=== PATIENT | male | born 1960 | race Hispanic/Latino ===

== ENCOUNTER 2017-08-21 18:16 | Emergency (ER) | payer SELFPAY ==
[2017-08-21] MEDS ORDERED: cloNIDine 0.1 MG TAB ONE (18:58)
[2017-08-21] MEDS ORDERED: Lisinopril 10 MG TAB ONE (18:59)
[2017-08-21] MEDS ORDERED: Ibuprofen 800 MG TAB ONE (19:01)
--- NOTE | 2017-08-21 19:51 | RAD ---
LEFT KNEE FOUR VIEWS: HISTORY: Left knee pain. FINDINGS: No fracture, dislocation, or bony destruction is seen. POS: [facility]
== END 2017-08-21 19:57 | disposition left against medical advice (07) ==
LOC: ERS 18:16
DX: S89.92XA Unspecified injury of left lower leg, initial encounter (principal); E11.9 Type 2 diabetes mellitus without complications; I10 Essential (primary) hypertension; F41.9 Anxiety disorder, unspecified; F17.210 Nicotine dependence, cigarettes, uncomplicated; Z86.73 Personal history of transient ischemic attack (TIA), and cerebral infarction without residual deficits; W22.8XXA Striking against or struck by other objects, initial encounter; Y92.59 Other trade areas as the place of occurrence of the external cause

== ENCOUNTER 2017-12-25 08:35 | Emergency (ER) | payer BC, SELFPAY ==
--- NOTE | 2017-12-25 10:53 | RAD ---
LEFT FOREARM TWO VIEWS: History: Fall, injury to the left upper extremity and pain. FINDINGS: No evidence of fracture. IMPRESSION: No acute osseous abnormality identified. POS: [facility]
--- NOTE | 2017-12-25 10:53 | RAD ---
LEFT HUMERUS TWO VIEWS: History: Fall with injury to the left upper extremity with pain. FINDINGS: Humeral head appears to ride high on the glenoid which could indicate a chronic rotator cuff injury. There is no fracture or dislocation seen. IMPRESSION: No acute fracture or dislocation. POS: [facility]
--- NOTE | 2017-12-25 10:55 | RAD ---
LEFT SHOULDER 3 VIEWS: HISTORY: Fall with injury to left shoulder with pain. The subacromial distance is narrowed suggesting chronic rotator cuff injury. Mild degenerative das e noted with mild spurring from the humeral head. No evidence of acute fracture or dislocation. AC joint is normally aligned. IMPRESSION: No acute fracture or dislocation. Mild degenerative change and question chronic rotator cuff injury. POS: [facility]
== END 2017-12-25 11:16 | disposition home or self-care (01) ==
LOC: ERS 08:35
DX: S40.022A Contusion of left upper arm, initial encounter (principal); I10 Essential (primary) hypertension; E11.9 Type 2 diabetes mellitus without complications; F41.9 Anxiety disorder, unspecified; F17.210 Nicotine dependence, cigarettes, uncomplicated; Z86.73 Personal history of transient ischemic attack (TIA), and cerebral infarction without residual deficits; W01.0XXA Fall on same level from slipping, tripping and stumbling without subsequent striking against object, initial encounter

== ENCOUNTER 2018-10-16 07:35 | Emergency (ER) | payer MEDICARE, SELFPAY ==
[2018-10-16 08:17] LABS: #Eosinphils 0.3 thou/uL (0.0-0.7); #Lymphocytes 1.8 thou/uL (1.20-3.40); #Monocytes 0.9 thou/uL (0.11-0.59); #Neutrophils 10.3 thou/uL (1.40-6.50); %Basophils 0.1 % (0.0-1.0); %Eosinophils 2.5 % (0.0-10.0); %Lymphocytes 13.8 % (21.0-51.0); %Monocytes 6.5 % (0.0-10.0); %Neutrophils 77.2 % (42.0-75.0); Hemoglobin 14.9 g/dL (14.0-18.0); Mean Corpuscular Hemoglobin 28.3 pg (27.0-31.0); Mean Platelet Volume 8.7 fL (7.4-10.4); Platelet Count 245 thou/uL (130-400); RBC Distribution Width 12.7 % (11.5-14.5); Red Blood Cell (RBC) Count 5.26 mill/uL (4.70-6.10); White Blood Cell (WBC) Count 13.4 thou/uL (4.8-10.8)
[2018-10-16 08:44] LABS: ALT (SGPT) 9 U/L (8-55); AST (SGOT) 9 U/L (5-34); Albumin 3.9 g/dL (3.5-5.0); Alkaline Phosphatase 99 U/L (40-150); Anion Gap 12 mmol/L (10-20); BUN (Urea Nitrogen) 14 mg/dL (8.4-25.7); Bilirubin, Total 0.8 mg/dL (0.2-1.2); Calc. Creatinine Clearance 0 mL/min (70-130); Calcium 9.2 mg/dL (7.8-10.44); Carbon Dioxide 26 mmol/L (22-29); Chloride 102 mmol/L (98-107); Estimated GFR-MDRD 79; Globulin 3.4 g/dL (2.4-3.5); Glucose 229 mg/dL (70-105); Potassium 3.2 mmol/L (3.5-5.1); Protein, Total 7.3 g/dL (6.0-8.3); Sodium 137 mmol/L (136-145)
[2018-10-16] MEDS ORDERED: Piperacillin/Tazobactam 4.5 GM VIAL ONE (08:50)
[2018-10-16] MEDS ORDERED: Morphine 4 MG/ML VIAL ONE ×2 (09:01→10:19)
--- NOTE | 2018-10-16 09:26 | RAD ---
RIGHT HAND THREE VIEWS: History: 58-year-old male with history of right hand infection and swelling following a puncture wound. FINDINGS: Soft tissue swelling of the middle finger, particularly distally. Degenerative changes including the third finger distal interphalangeal joint. No acute fracture or dislocation. IMPRESSION: Soft tissue swelling. Degenerative changes. No acute fracture or metal foreign body. POS: [facility]
== END 2018-10-16 11:17 | disposition short-term general hospital (02) ==
LOC: ERS 07:35
DX: M65.841 Other synovitis and tenosynovitis, right hand (principal); E11.9 Type 2 diabetes mellitus without complications; I10 Essential (primary) hypertension; Z86.73 Personal history of transient ischemic attack (TIA), and cerebral infarction without residual deficits; F41.9 Anxiety disorder, unspecified; F17.210 Nicotine dependence, cigarettes, uncomplicated
CPT/HCPCS: 36415; 80053; 83605; 85025; 85652; 86140; 87040; 96365; 96375; 96376; J2270; J2543

== ENCOUNTER 2018-11-18 19:11 | Emergency (ER) | payer MEDICARE ==
--- NOTE | 2018-11-19 07:45 | RAD ---
RADIOGRAPH RIGHT THIRD DIGIT 3 VIEWS: Date: 11/18/18 Time: 2239 hours HISTORY: 58-year-old male with pain and swelling of digits. Previous trauma in October 2018 followed by tim galloway. COMPARISON: 10/16/18. FINDINGS: The third DIP is flexed, while the third PIP and MCP are not flexed. The previously demonstrated soft tissue swelling of the third digit has become worse. Tiny calcific densities in the soft tissues abu tting the dorsum of the base of the distal phalanx and dorsum of head of middle phalanx demonstrated on lateral view. The one at the base of the distal phalanx appears to be new since the prior study. N o subcutaneous emphysema. The distal phalanx is difficult to evaluate because of the flexion, on the oblique and AP views. No destructive osseous lesion is identified on the lateral view. IMPRESSION: 1. Evidence for extensor coles injury of the third distal interphalangeal joint. 2. Worsening of diffuse soft tissue swelling of the third digit, suggestive of cellulitis. POS: [facility]
== END 2018-11-19 00:40 | disposition home or self-care (01) ==
LOC: ERS 19:11
DX: T81.89XA Other complications of procedures, not elsewhere classified, initial encounter (principal); E11.9 Type 2 diabetes mellitus without complications; I10 Essential (primary) hypertension; Z86.73 Personal history of transient ischemic attack (TIA), and cerebral infarction without residual deficits; F41.9 Anxiety disorder, unspecified; F17.210 Nicotine dependence, cigarettes, uncomplicated

== ENCOUNTER 2019-12-01 10:36 | Emergency (ER) | payer MEDICARE ==
[2019-12-01 11:35] LABS: #Basophils 0.1 thou/uL (0.0-0.2); #Eosinphils 0.3 thou/uL (0.0-0.7); #Lymphocytes 2.1 thou/uL (1.20-3.40); #Monocytes 0.6 thou/uL (0.11-0.59); #Neutrophils 3.3 thou/uL (1.40-6.50); %Basophils 1.3 % (0.0-1.0); %Eosinophils 5.4 % (0.0-10.0); %Lymphocytes 32.7 % (21.0-51.0); %Monocytes 8.9 % (0.0-10.0); %Neutrophils 51.7 % (42.0-75.0); Hemoglobin 15.5 g/dL (14.0-18.0); Mean Corpuscular HGB CONC 33.8 g/dL (32.0-36.0); Mean Corpuscular Hemoglobin 29.5 pg (27.0-31.0); Mean Corpuscular Volume 87.2 fL (78.0-98.0); Mean Platelet Volume 8.8 fL (7.4-10.4); Platelet Count 207 thou/uL (130-400); Red Blood Cell (RBC) Count 5.28 mill/uL (4.70-6.10); White Blood Cell (WBC) Count 6.3 thou/uL (4.8-10.8)
[2019-12-01] MEDS ORDERED: Amlodipine 5 MG TAB ONE (11:49)
[2019-12-01 11:57] LABS: Bilirubin Negative (Negative); Blood, Urine Negative (Negative); Clarity Clear (Clear); Glucose, Urine (Dipstick) 300 mg/dL (Negative); Leukocyte Negative Leu/uL (Negative); Nitrite Negative (Negative); Protein, Urine (Dipstick) Negative (Neg-Trace); Urobilinogen Normal mg/dL (Less than 2)
[2019-12-01 12:04] LABS: ALT (SGPT) 20 U/L (8-55); AST (SGOT) 13 U/L (5-34); Albumin 4.2 g/dL (3.4-4.8); Alkaline Phosphatase 107 U/L (40-110); Anion Gap 12 mmol/L (10-20); BUN (Urea Nitrogen) 16 mg/dL (8.4-25.7); Bilirubin, Total 0.4 mg/dL (0.2-1.2); Calc. Creatinine Clearance 0 mL/min (70-130); Calcium 9.1 mg/dL (7.8-10.44); Carbon Dioxide 27 mmol/L (23-31); Chloride 102 mmol/L (98-107); Estimated GFR-MDRD 73; Globulin 2.7 g/dL (2.4-3.5); Glucose 178 mg/dL (80-115); Lipase 28 U/L (8-78); Potassium 3.9 mmol/L (3.5-5.1); Protein, Total 6.9 g/dL (5.8-8.1); Sodium 137 mmol/L (136-145)
--- NOTE | 2019-12-01 12:53 | CT ---
CT OF THE ABDOMEN AND PELVIS WITH IV CONTRAST INDICATION: Right-sided abdominal pain COMPARISON: None FINDINGS: ABDOMEN: Lung bases: There is bibasilar atelectasis Liver: No focal lesion. Gallbladder: Normal appearing. Pancreas: Normal. Adrenal glands: Normal. Spleen: Normal. Kidneys and ureters: There is a 4.2 x 4.7 cm peripherally enhancing exophytic mass extending off the superior pole of the right kidney on image 32 of series 2 most consistent with renal cell carcinoma. There is a 4.0 x 4.6 x 5 cm cyst with internal nodular septation consistent with a Bosniak 3 lesion of the superior pole left kidney. Vasculature: There are mild vascular calcifications seen involving the visualized vasculature. Both r enal veins are patent. Lymph nodes:No lymphadenopathy. Free fluid in abdomen:No free fluid is evident. PELVIS: Small and large bowel: There is a moderate amount retained stool within the colon. There is an normal appearance to the small bowel. Appendix:Normal Bladder: Normal. Rectal and perirectal soft tissues:Normal. Reproductive structures: Normal. Free fluid in pelvis: No free fluid is evident. Lymphadenopathy pelvis: No lymphadenopathy is evident. Osseous structures: No acute osseous abnormality. No destructive osteolytic or osteoblastic lesion i s identified. There is scattered degenerative and osteoarthritic changes. Soft tissues:Normal. IMPRESSION: 1. 4.7 cm peripherally enhancing exophytic solid mass of the superior pole of the right kidney is con sistent with a renal cell carcinoma. 2. 5 cm cyst involving the superior pole left kidney with internal nodular septal enhancement is cons istent with a Bosniak 3 lesion of the left kidney. 3. Moderate amount retained stool within the colon. 4. Urology consultation is recommended.
[2019-12-01] MEDS ORDERED: Iopamidol-370 76% 500 ML 1 ML ONE (13:39)
== END 2019-12-01 15:44 | disposition home or self-care (01) ==
LOC: ERS 10:36
DX: N28.1 Cyst of kidney, acquired (principal); N28.89 Other specified disorders of kidney and ureter; I10 Essential (primary) hypertension; E11.9 Type 2 diabetes mellitus without complications; F41.9 Anxiety disorder, unspecified; F17.210 Nicotine dependence, cigarettes, uncomplicated; Z86.73 Personal history of transient ischemic attack (TIA), and cerebral infarction without residual deficits
CPT/HCPCS: 36415; 74177; 80053; 81003; 83690; 83880; 84484; 85025; 93005; Q9967

== ENCOUNTER 2019-12-09 11:56 | Observation (INO) | payer BC, MEDICARE ==
[2019-12-09 13:14] LABS: #Basophils 0.1 thou/uL (0.0-0.2); #Eosinphils 0.4 thou/uL (0.0-0.7); #Lymphocytes 2.7 thou/uL (1.20-3.40); #Monocytes 0.7 thou/uL (0.11-0.59); #Neutrophils 3.5 thou/uL (1.40-6.50); %Basophils 1.8 % (0.0-1.0); %Lymphocytes 35.9 % (21.0-51.0); %Monocytes 9.9 % (0.0-10.0); %Neutrophils 46.5 % (42.0-75.0); Hemoglobin 14.4 g/dL (14.0-18.0); Mean Corpuscular HGB CONC 32.4 g/dL (32.0-36.0); Mean Corpuscular Hemoglobin 28.8 pg (27.0-31.0); Mean Corpuscular Volume 88.9 fL (78.0-98.0); Mean Platelet Volume 9.1 fL (7.4-10.4); Platelet Count 185 thou/uL (130-400); RBC Distribution Width 13.2 % (11.5-14.5); Red Blood Cell (RBC) Count 4.99 mill/uL (4.70-6.10); White Blood Cell (WBC) Count 7.4 thou/uL (4.8-10.8)
--- NOTE | 2019-12-09 13:30 | RAD ---
XR Chest 1 View Portable HISTORY: Chest pain, dizziness COMPARISON: 11/23/2016 FINDINGS: The heart size is normal. The lungs are well expanded without focal areas of consolidation, pneumothorax or pleural effusions. IMPRESSION: No radiographic evidence of acute cardiopulmonary process.
[2019-12-09 13:41] LABS: ALT (SGPT) 17 U/L (8-55); AST (SGOT) 13 U/L (5-34); Albumin 3.9 g/dL (3.4-4.8); Alkaline Phosphatase 104 U/L (40-110); Anion Gap 10 mmol/L (10-20); BUN (Urea Nitrogen) 24 mg/dL (8.4-25.7); Bilirubin, Total 0.2 mg/dL (0.2-1.2); Calc. Creatinine Clearance 0 mL/min (70-130); Calcium 8.7 mg/dL (7.8-10.44); Carbon Dioxide 31 mmol/L (23-31); Chloride 104 mmol/L (98-107); Estimated GFR-MDRD 71; Globulin 2.6 g/dL (2.4-3.5); Glucose 146 mg/dL (80-115); Potassium 3.7 mmol/L (3.5-5.1); Protein, Total 6.5 g/dL (5.8-8.1); Sodium 141 mmol/L (136-145)
[2019-12-09 14:24] LABS: Bilirubin Negative (Negative); Blood, Urine Negative (Negative); Clarity Clear (Clear); Glucose, Urine (Dipstick) 200 mg/dL (Negative); Leukocyte Negative Leu/uL (Negative); Nitrite Negative (Negative); Protein, Urine (Dipstick) Negative (Neg-Trace); Urobilinogen Normal mg/dL (Less than 2)
[2019-12-09 15:40] LABS: Amphetamine Not Detected (NotDetected); Barbiturates Screen Not Detected (NotDetected); Benzodiazepine Screen Not Detected (NotDetected); Cocaine Metabolite Screen Detected (NotDetected); Medtox Control Line Valid? VALID (VALID); Medtox Reader # READER 1; Methadone Not Detected (NotDetected); Methamphetamine Not Detected (NotDetected); Opiate Screen Not Detected (NotDetected); Oxycodone Screen Not Detected (NotDetected); Phencyclidine (PCP) Not Detected (NotDetected); THC/Cannabinoid Screen Not Detected (NotDetected); Tricyclic Screen Not Detected (NotDetected)
[2019-12-09 15:42] LABS: Troponin I 0.035 ng/mL (< 0.028)
[2019-12-09] MEDS ORDERED: Aspirin Chewable 81 MG TAB ONE (16:15)
[2019-12-09 19:40] LABS: Troponin I 0.029 ng/mL (< 0.028)
[2019-12-09] MEDS ORDERED: Sodium Chloride 0.9% 1,000 ML IV SCH (19:45)
[2019-12-09 19:58] VITALS: BMI 29.2
--- NOTE | 2019-12-09 20:27 | CT ---
CT Brain WO Con History: Head injury with loss of consciousness. Comparison: CT brain May 2017 Findings: Old right pontine infarct. Mild microvascular ischemic changes in the subcortical and deep white matter. No acute hemorrhage. No midline shift or mass effect. Mild mucosal thickening of the posterior ethmoi ds. Mastoids are clear. The calvarium is intact. Right posterior davis radiata white matter infarct is new from 2017 although not acute. Impression: No acute posttraumatic intracranial sequelae.
[2019-12-09] MEDS ORDERED: Acetaminophen 650 MG Suppository PR PRN (20:31)
--- NOTE | 2019-12-09 20:37 | RAD ---
XR Chest Pa Lat STANDARD History: Shortness of breath Comparison: Radiograph same day Findings: Heart size mildly enlarged. No pneumothorax. No effusion. No acute osseous abnormality. Impression: No acute intrathoracic abnormality.
[2019-12-09] MEDS: Atorvastatin Calcium 40 MG TAB PO SCH (20:52)
[2019-12-09] MEDS: Acetaminophen 325 MG TAB PO PRN (20:53)
[2019-12-09] MEDS: Famotidine 20 MG TAB PO SCH (20:53)
[2019-12-09] MEDS ORDERED: Dextrose 5% in Water 1,000 ML IV PRN (21:02)
[2019-12-09] MEDS ORDERED: Dextrose 50% Abboject 50 ML SYRINGE SLOW IVP PRN (21:02)
[2019-12-09] MEDS ORDERED: HumaLOG 300 UNITS/3 ML VIAL SC PRN (21:02)
--- NOTE | 2019-12-09 21:50 | HP ---
TIME OF ASSESSMENT: 1900 hours. CHIEF COMPLAINT: "I feel weird and fat." HISTORY OF PRESENT ILLNESS: Mr. Cody is a 59-year-old gentleman, who states he has felt "weird" and like "something is not right" since he woke up early this morning. The patient states he feels "fat," but unable to gauge if he has gained weight. He reported to the nurse that he had actually lost weight recently. He reports having an unusual sensation in his hands, which he describes as numb and heavy. Reports having weakness on both sides of his body, making it difficult to get out of bed, but denies having any difficulty holding objects or dropping things or dragging his leg when he walks. The patient unable to really answer specific questions regarding his symptoms and is vague. He states he himself is confused with how he is feeling. Reports noting some numbness on the left side of his face, which he states has been there for a "long time." The patient is unable to state exactly how long if few days, weeks, or months. He denies having any chest pain or palpitations. He does report an episode of shortness of breath yesterday evening when he walked outside in the cold. The patient states he normally does not become short of breath with walking and is able to walk for several miles. He reports some discomfort on the right side of his abdomen, which has been there for the last couple of weeks. He presented to the emergency department recently on December 01 with complaints of right-sided abdominal pain. The patient was noted to have a significantly elevated blood pressure of 238/115 at initial presentation. He was given amlodipine. An EKG done at that time had demonstrated T-wave inversion in leads 1, 2, V4 to V6, similar to previous EKG in 2017. The patient had CT imaging of the abdomen and pelvis, which showed a right renal mass, peripherally enhancing exophytic solid mass of the superior pole of the right kidney consistent with renal cell carcinoma and measuring 4.7 cm. There is a moderate amount of retained stool within the colon. The patient's case had been discussed with Dr. Dumont, who recommended outpatient followup. The patient was discharged with a prescription for amlodipine. He states he was never on antihypertensives in the past. The discomfort on the right side of his abdomen has remained constant since. EMERGENCY DEPARTMENT COURSE: In the Emergency Department today, the patient has undergone an EKG showing sinus bradycardia with a heart rate of 56 and left ventricular hypertrophy type changes. Chest x-ray was done showing mildly enlarged heart size. He was given 324 mg of aspirin and referred for ACS rule out and "dizziness workup." The patient denies experiencing any spinning sensation or ataxia. Again, denies experiencing any chest pain. LABORATORY STUDIES: He had laboratory studies done, which showed a normal full blood count. Sodium was 141, potassium 3.7, BUN 24, creatinine 1.06, GFR 71, glucose 146, calcium 8.7, total bilirubin 0.2, AST 13, ALT 17, alkaline phosphatase 104. Troponin 0.027, 0.035, and 0.029. Albumin 3.9. Urinalysis done showed 200 of glucose, otherwise negative. Urine drug screen was positive for cocaine. PAST MEDICAL HISTORY: 1. Hypertension. 2. History of acute pontine infarction with left-sided weakness. 3. Type 2 diabetes mellitus. 4. Dyslipidemia. 5. Cocaine abuse. PAST SURGICAL HISTORY: 1. Right wrist surgery with contractions in the right hand. 2. Chronic right ear surgery because of trauma. 3. History of skin graft. ALLERGIES: NO KNOWN DRUG ALLERGIES. MEDICATION: Amlodipine. PHYSICAL EXAMINATION: GENERAL: The patient appears well developed and in no acute distress. VITAL SIGNS: Temperature 98.3, pulse 72, respirations 20, O2 saturation 96% on room air, blood pressure 148/82 supine, 154/74 sitting and 169/80 standing. HEENT: Normocephalic and atraumatic. Pupils are equal, round, and reactive to light. Sclerae are without icterus. Oropharynx clear. NECK: Supple. LUNGS: Clear to auscultation bilaterally. CARDIAC: Regular rate and rhythm. ABDOMEN: Soft, nontender, nondistended. Normoactive bowel sounds present. EXTREMITIES: No lower leg swelling or edema. Peripheral pulses present. NEUROLOGIC: Alert and oriented x3. Facial movements normal. No tongue deviation. Slight altered sensation on the left side of his cheek, which he states is chronic for unknown period of time. Power 5/5 in all limbs. Sensation intact, however, the patient is stating that his arms feel heavy and fingertips feel numb. The patient is a poor historian and inconsistent on exam. INVESTIGATIONS: As mentioned above in HPI. IMPRESSION AND PLAN: Mr. Cody is a 59-year-old gentleman with multiple complaints, who is being admitted for management of the following. 1. Syncope/collapse. The patient with vague/inconsistent symptoms concerning for possible cerebrovascular accident/transient ischemic attack. He has a history of stroke in the past. We will obtain CT of head given head injury with loss of consciousness yesterday any symptoms that develops since then. We will order echo and consult neuro. 2. Acute coronary syndrome rule out. The patient denies having any chest pain. He did have an indeterminate troponin. We will continue to trend troponins. Continue cardiac monitoring. Chest x-ray notable for mild cardiomegaly. We will add on a BNP. 3. Hypertension. Monitor blood pressure. Continue with orthostatic BPs q.a.m. 4. Diabetes mellitus. Resume home medications once verified. Initiate sliding scale. 5. Dyslipidemia. Resume statin. 6. Gastrointestinal prophylaxis with famotidine. 7. Deep venous thrombosis prophylaxis. Walking program consulted. Mechanical SCDs. 8. Code status full. Surrogate decision maker is his , Michelle Norman. The patient's case discussed with attending, who agrees with the plan of care as described above. Job ID: [id number]
[2019-12-09 23:00] LABS: Troponin I 0.033 ng/mL (< 0.028)
[2019-12-10 05:20] LABS: #Basophils 0.1 thou/uL (0.0-0.2); #Eosinphils 0.5 thou/uL (0.0-0.7); #Lymphocytes 3.4 thou/uL (1.20-3.40); #Monocytes 0.7 thou/uL (0.11-0.59); #Neutrophils 3.1 thou/uL (1.40-6.50); %Basophils 0.9 % (0.0-1.0); %Eosinophils 6.4 % (0.0-10.0); %Lymphocytes 44.1 % (21.0-51.0); %Monocytes 8.7 % (0.0-10.0); %Neutrophils 39.9 % (42.0-75.0); Hemoglobin 13.5 g/dL (14.0-18.0); Mean Corpuscular HGB CONC 30.5 g/dL (32.0-36.0); Mean Corpuscular Hemoglobin 27.1 pg (27.0-31.0); Mean Corpuscular Volume 88.6 fL (78.0-98.0); Mean Platelet Volume 9.4 fL (7.4-10.4); Platelet Count 192 thou/uL (130-400); RBC Distribution Width 13.1 % (11.5-14.5); Red Blood Cell (RBC) Count 4.98 mill/uL (4.70-6.10); White Blood Cell (WBC) Count 7.7 thou/uL (4.8-10.8)
[2019-12-10 05:44] LABS: Anion Gap 9 mmol/L (10-20); BUN (Urea Nitrogen) 14 mg/dL (8.4-25.7); Calc. Creatinine Clearance 91 mL/min (70-130); Calcium 8.8 mg/dL (7.8-10.44); Carbon Dioxide 30 mmol/L (23-31); Cardiac Risk 4.8 (Less than 4.5); Chloride 103 mmol/L (98-107); Cholesterol 253 mg/dl (< 200 Desired); Estimated GFR-MDRD 83; Glucose 147 mg/dL (80-115); HDL Cholesterol 53 mg/dL (>60 Neg Risk); LDL Cholesterol, Calculated 175 mg/dL; Potassium 3.3 mmol/L (3.5-5.1); Sodium 139 mmol/L (136-145); Triglycerides 124 mg/dL (Less than 150)
[2019-12-10] MEDS: Famotidine 20 MG TAB PO SCH ×2 (08:07→20:11)
[2019-12-10] MEDS: Aspirin 81 mg Enteric Coated Tablet PO SCH (08:07)
[2019-12-10] MEDS: Acetaminophen 325 MG TAB PO PRN (08:07)
--- NOTE | 2019-12-10 08:45 | CON ---
DATE OF CONSULTATION: 12/10/2019 CONSULTING PHYSICIAN: Hospitalist Service. IMPRESSION: 1. Nonspecific diffuse numbness of the body, likely related to uncontrolled hypertension and cocaine use. 2. Diabetes. 3. Renal cell cancer. PLAN: Manage risk factors. HISTORY OF PRESENT ILLNESS: Mr. Cody is a 59-year-old man, who came in with complaints, they were quite vague. He reported some chest pain as well as some diffuse body numbness or tingling. He came in markedly hypertensive with pressures of over 250/130s. His blood pressure is brought under control. He reports his sensations are better. He still has some residual pain in the right flank. He denies any headache, nausea, vomiting, dizziness, blurred vision, lateralized weakness or numbness, slurred speech or difficulty swallowing. He has reported distant history of a stroke, which on CT scan was small lacunar infarction. His lab work showed elevated blood glucoses in the [address] of the abdomen and pelvis showed a renal mass that was solid and enhancing. His drug screen was positive for cocaine. PAST MEDICAL HISTORY: Hypertension, diabetes, which were not being managed. ALLERGIES: NONE. SOCIAL HISTORY: Drug use. FAMILY HISTORY: Noncontributory. REVIEW OF SYSTEMS: Ten-system review of systems is otherwise negative. PHYSICAL EXAMINATION: GENERAL: He is a reasonably well-nourished, middle-aged man, sitting in bed, in no distress. VITAL SIGNS: Stable. He is afebrile. HEENT: Pupils are equal and reactive. Conjunctivae are clear. Oropharynx clear. NECK: Supple. No lymphadenopathy. EXTREMITIES: No cyanosis, clubbing, or edema. NEUROLOGIC: He is alert and oriented. His speech is fluent and clear. Cranial nerves II through XII are intact. Motor exam showed good strength bilaterally. Sensation was intact to touch. Plantar responses were downgoing. He can walk independently. There is no tremor or dysmetria present. IMAGING STUDIES: EKG showed a sinus rhythm with some flipped T-waves. SUMMARY: A middle-aged man, who presented with a positive drug screen, severe hypertension, nothing remarkable on CT or physical exam, I suspect his sensations are nonspecific and related to his uncontrolled hypertension. I do not see any acute neurologic issues. Job ID: [id number]
[2019-12-10] MEDS ORDERED: Lisinopril 5 MG TAB PO SCH (09:30)
--- NOTE | 2019-12-10 11:07 | MRI ---
MRI BRAIN WITHOUT CONTRAST: Date: 12/10/2019 COMPARISON: None. HISTORY: Syncope and dizziness. TECHNIQUE: Multiplanar, multisequence MR images were obtained of the brain without contrast. FINDINGS: This exam is limited secondary to motion artifact. There is scattered foci of high FLAIR signal in th e subcortical and periventricular white matter, likely secondary to small vessel ischemic disease. No restricted diffusion is seen to suggest an acute infarction. The expected flow-voids are present. There is no evidence of hydrocephalus, intracranial hemorrhage, or extra-axial fluid collection. The corpus callosum, pituitary, and craniocervical junction are unre markable. The calvarium and overlying soft tissues are unremarkable. Fluid is seen in the ethmoid air cells. IMPRESSION: Small vessel ischemic disease without acute intracranial abnormality. POS: [facility]
[2019-12-10] MEDS: HumaLOG 300 UNITS/3 ML VIAL SC PRN (12:50)
--- NOTE | 2019-12-10 16:18 | PDOC.HOSPP ---
- Subjective Subjective: 59-year-old gentleman with follow up on chest pain and syncopal episode, and the setting of uncontrolled hypertension and cocaine use. Patient seen and examined on the medical unit with telemetry with family at bedside. He is breathing comfortably on room air. Patient was plan for stress test this a.m., unfortunately he drank coffee. Time was given for questions, all answered in detail. - Objective Vital Signs & Weight: Vital Signs (12 hours) Temp Pulse Resp BP BP BP BP 12/10/19 11:20 97.3 F L 68 20 159/88 H 12/10/19 09:52 66 12/10/19 08:00 97.9 F 66 18 175/97 H 174/103 H 169/92 H Pulse Ox 12/10/19 11:20 96 12/10/19 09:52 12/10/19 08:00 95 Weight Admit Weight 170 lb 3.2 oz Weight 170 lb 3.2 oz I&O: 12/09/19 12/10/19 12/11/19 06:59 06:59 06:59 Intake Total 480 Output Total 650 650 Balance -170 -650 Result Diagrams: 12/10/19 04:22 12/10/19 04:22 Additional Labs: Accuchecks 12/10/19 12/09/19 11:26 21:43 POC Glucose 206 H 255 H Radiology Reviewed by me: Yes Hospitalist ROS - Review of Systems All other systems reviewed; all pertinent +/- noted in HPI/Subj - Medication Medications: Active Medications Generic Name Dose Route Start Last Admin Trade Name Freq PRN Reason Stop Dose Admin Acetaminophen 650 mg 12/09/19 20:31 12/10/19 08:07 Tylenol PO 650 mg Q4H PRN Administration Fever/Mild Pain Aspirin 81 mg 12/10/19 09:00 12/10/19 08:07 Ecotrin PO 81 mg DAILY SAPNA Administration Atorvastatin Calcium 40 mg 12/09/19 21:00 12/09/19 20:52 Lipitor PO 40 mg HS SAPNA Administration Famotidine 20 mg 12/09/19 21:00 12/10/19 08:07 Pepcid PO 20 mg BID SAPNA Administration Insulin Human Lispro 0 units 12/09/19 21:02 12/10/19 12:50 Humalog SC 3 unit .MILD SLIDING SCALE PRN Administration Mild Correctional Scale Sodium Chloride 10 ml 12/09/19 21:00 12/10/19 08:10 Flush - Normal Saline IVF 10 ml Q12HR SAPNA Administration - Exam General Appearance: NAD, awake alert Eye: anicteric sclera ENT: normocephalic atraumatic, moist mucosa Neck: supple, symmetric, no lymphadenopathy Heart: no murmur, no gallops, no rubs Respiratory: CTAB, no wheezes, no rales, no ronchi Gastrointestinal: soft, non-tender, non-distended, no guarding, no rigidity Extremities: no edema Skin: no lesions, no rashes Neurological: cranial nerve grossly intact, no focal deficits Musculoskeletal: generalized weakness Psychiatric: normal affect, A&O x 3 Hosp A/P (1) Chest pain Code(s): R07.9 - CHEST PAIN, UNSPECIFIED Status: Acute (2) Cocaine abuse Code(s): F14.10 - COCAINE ABUSE, UNCOMPLICATED Status: Chronic (3) HLD (hyperlipidemia) Code(s): E78.5 - HYPERLIPIDEMIA, UNSPECIFIED Status: Chronic (4) HTN (hypertension) Code(s): I10 - ESSENTIAL (PRIMARY) HYPERTENSION Status: Chronic (5) Type 2 diabetes mellitus Status: Chronic Qualifiers: Diabetes mellitus complication status: with unspecified complications - Plan Plan: medical unit with telemetry neurology consultation, recommendations appreciated MRI brain normal vague neurologic symptoms likely secondary to uncontrolled high blood pressure and cocaine use with chest pain and nuclear medicine stress test was recommended echocardiogram with the preserved ejection fraction and diastolic dysfunction adjust blood pressure medications as needed blood sugar control continue other home medications is able abstinence from cocaine G.I. prophylaxis DVT prophylaxis
[2019-12-10] MEDS ORDERED: Labetalol HCl 100 MG/20 ML VIAL SLOW IVP PRN (17:35)
[2019-12-10] MEDS ORDERED: hydrALAZINE 20 MG/ML VIAL SLOW IVP PRN (17:35)
[2019-12-10] MEDS ORDERED: Amlodipine 10 MG TAB PO SCH (17:45)
[2019-12-10] MEDS: Lisinopril 10 MG TAB PO SCH (20:11)
[2019-12-10] MEDS: Atorvastatin Calcium 40 MG TAB PO SCH (20:12)
[2019-12-11] MEDS: Aspirin 81 mg Enteric Coated Tablet PO SCH (08:27)
[2019-12-11] MEDS: Famotidine 20 MG TAB PO SCH (08:27)
[2019-12-11] MEDS: Lisinopril 10 MG TAB PO SCH (08:31)
[2019-12-11] MEDS ORDERED: Amlodipine 10 MG TAB PO SCH (09:00)
[2019-12-11] MEDS ORDERED: Lisinopril 5 MG TAB PO SCH (09:00)
[2019-12-11] MEDS ORDERED: ADENOSINE 60 MG/20 ML VIAL ONE (09:48)
[2019-12-11] MEDS: HumaLOG 300 UNITS/3 ML VIAL SC PRN (12:20)
[2019-12-11 13:09] VITALS: BP 177/92; TEMP 98.2
--- NOTE | 2019-12-11 13:35 | NM ---
MYOCARDIAL PERFUSION SCAN WITH SPECT IMAGING: HISTORY: Chest pain. FINDINGS: Examination was performed using 29.3 mCi 99m Technetium sestamibi on the stress and 32.7 mCi on the r esting images. This shows a fairly normal distribution of the radiopharmaceutical without signs of i schemia or scar. WALL MOTION: There is symmetric contractility to the ventricle. LEFT VENTRICULAR EJECTION FRACTION: Calculated left ventricular ejection fraction was 51%. IMPRESSION: No evidence of ischemic change. Left ventricular ejection fraction was calculated at 51%. Please co rrelate with echocardiogram. POS: [facility]
--- NOTE | 2019-12-11 17:06 | DIS ---
DATE OF ADMISSION: 12/09/2019 DATE OF DISCHARGE: 12/11/2019 REASON FOR HOSPITALIZATION: Neurologic symptoms. SIGNIFICANT FINDINGS: The patient was found to have malignant hypertension and cocaine abuse as a cause of his symptoms. PROCEDURES PERFORMED AND TREATMENTS RENDERED: Mr. Cody is a pleasant 59-year-old gentleman, who presented to the [facility] on 12/09/2019 with vague neurologic symptoms. The patient was initially labeled by the Emergency Department as a stroke and recommended CVA evaluation. The patient also had episodes of chest discomfort. The patient was seen and evaluated by Neurology, Dr. Redman - please see full consultation notes for details. A full and thorough neurologic workup was completed and found to be negative. The patient had MRI of the brain, please see full report for details. PE please see echocardiogram report for details. Please see CT scan of the brain for details. All neurologic tests and imaging were found to be negative and the symptoms were not neurologic in origin. The patient was recommended for nuclear medicine stress test, which was performed on 12/11/2019 - please see full report for details - there was no reversible ischemia identified. The patient's symptoms have resolved since admission. The patient's blood pressure was difficult to control and required multiple medications with varying increase in doses until he could have adequate blood pressure control. The patient breathing. The patient was seen and examined on 12/07/2019 and he is to return to his normal state of good health. The patient is sitting up in bed breathing comfortably on room air. The patient walking around the halls without discomfort. The patient's blood pressure remains minor early on the high side and I recommended to him that he get a blood pressure cuff and keep a close watch over his blood pressure and keep a log. I instructed him that he must see his primary care physician in the next 5 to 7 days and go over blood pressure log in addition to taking his new medications as directed. The patient recommended safe for discharge on 12/11/2019. CONDITION ON DISCHARGE: Stable. SPECIFIC INSTRUCTIONS FOR THE PATIENT/FAMILY: 1. Abstain from cocaine use. 2. Take blood pressure medications as directed. 3. Take all other home medications as directed. 4. The patient recommended to follow up with primary care physician in the next 5 to 7 days for blood pressure monitoring and adjustment of medications as directed. 5. The patient recommended to keep a blood pressure log and take this to his upcoming appointment with primary care physician. DISCHARGE MEDICATIONS: Please see full discharge medication list for details: 1. Lisinopril 10 mg one tablet p.o. b.i.d. 2. Atorvastatin 40 mg one tablet p.o. at bedtime. 3. Aspirin 81 mg one tablet p.o. daily. 4. Amlodipine 10 mg one tablet p.o. daily. Greater than 35 minutes spent coordinating care and discharge process for this patient. Job ID: [id number]
== END 2019-12-11 14:15 | disposition home or self-care (01) ==
LOC: ERS 11:56 → 2SW 18:59
PROVIDERS: ADMIT Emergency Medicine; ATTEND Emergency Medicine
DX: F14.10 Cocaine abuse, uncomplicated (principal); I10 Essential (primary) hypertension; R07.89 Other chest pain; R55 Syncope and collapse; E11.9 Type 2 diabetes mellitus without complications; E78.5 Hyperlipidemia, unspecified; F17.210 Nicotine dependence, cigarettes, uncomplicated; Z86.73 Personal history of transient ischemic attack (TIA), and cerebral infarction without residual deficits; Z79.899 Other long term (current) drug therapy
CPT/HCPCS: 70450; 70551; 71045; 71046; 78452; 80048; 80053; 80061; 80306; 81003; 82962 ×3; 83735; 83880; 84443; 84484 ×2; 85025 ×2; 93005; 93017; 93306; 94760; 97139; 99285; A9500; G0378 ×4; 36415; 36416; J0153

== ENCOUNTER 2019-12-31 08:18 | Outpatient (CLI) | payer MEDICARE ==
--- NOTE | 2019-12-31 14:24 | NM ---
: Nuclear medicine whole body bone scan HISTORY: Right renal cancer. COMPARISON: None TECHNIQUE: Patient was ministered 32.2 mCi of technetium 99m MDP intravenously. After appropriate del ay, whole body imaging was performed FINDINGS: Visualized distribution of the radiotracer Uptake in bilateral shoulders, bilateral knees, right foot and ankle are presumed to be due to degene rative change. There is uptake in the left acetabulum as well as the sternum. Correlation made with CT from 0 does demonstrate a sclerotic focus in the left acetabulum there is also a second sclerotic focus in the left iliac wing. Findings are felt to be due to degenerative change and bone islands. IMPRESSION: 1. Uptake in the sternum likely due to degenerative change in the sternomanubrial joint. Nevertheless , better interrogation with a postcontrast chest CT is recommended 2. Sclerotic foci in the left acetabulum and left iliac wing noted on recent CT. There is associated uptake in the left acetabulum, due to degenerative change. No associated uptake in the left iliac wing. CT suggests bone islands.
== END 2019-12-31 08:19 | disposition home or self-care (01) ==
LOC: NM 08:18
PROVIDERS: ATTEND Urology
DX: K92.0 Hematemesis (principal); R11.0 Nausea; M16.12 Unilateral primary osteoarthritis, left hip
CPT/HCPCS: 78306; A9503

== ENCOUNTER 2020-05-19 10:50 | Emergency (ER) | payer MEDICARE, OTHER ==
[2020-05-20 12:24] LABS: SARS-CoV-2 MS2 Positive; SARS-CoV-2 N Gene Negative; SARS-CoV-2 S Gene Negative; SARS-CoV-2 orf1ab Negative
== END 2020-05-19 12:08 | disposition home or self-care (01) ==
LOC: ERS 10:50
DX: F41.9 Anxiety disorder, unspecified (principal); Z20.828 Contact with and (suspected) exposure to other viral communicable diseases; E11.9 Type 2 diabetes mellitus without complications; I10 Essential (primary) hypertension; Z86.73 Personal history of transient ischemic attack (TIA), and cerebral infarction without residual deficits; F17.210 Nicotine dependence, cigarettes, uncomplicated
CPT/HCPCS: 99281; U0003; 87635

== ENCOUNTER 2021-03-29 18:17 | Observation (INO) | payer MEDICARE ==
[2021-03-29] MEDS ORDERED: Nitroglycerin 2% Ointment 1 INCH/1 GM Packet ONE (19:07)
[2021-03-29] MEDS ORDERED: Nitroglycerin 0.4 MG TAB 1 EACH ONE (19:07)
[2021-03-29] MEDS ORDERED: Aspirin Chewable 81 MG TAB ONE (19:07)
[2021-03-29 19:15] LABS: #Basophils 0.1 thou/uL (0.0-0.2); #Eosinphils 0.3 thou/uL (0.0-0.7); #Monocytes 0.5 thou/uL (0.11-0.59); #Neutrophils 6.2 thou/uL (1.40-6.50); %Basophils 1.1 % (0.0-1.0); %Lymphocytes 21.8 % (21.0-51.0); %Monocytes 5.5 % (0.0-10.0); %Neutrophils 68.5 % (42.0-75.0); Mean Corpuscular HGB CONC 34.6 g/dL (32.0-36.0); Mean Corpuscular Hemoglobin 30.7 pg (27.0-31.0); Mean Platelet Volume 9.4 fL (7.4-10.4); Platelet Count 185 thou/uL (130-400); RBC Distribution Width 13.4 % (11.5-14.5); Red Blood Cell (RBC) Count 5.53 mill/uL (4.70-6.10)
[2021-03-29 19:40] LABS: ALT (SGPT) 28 U/L (8-55); AST (SGOT) 13 U/L (5-34); Albumin 4.2 g/dL (3.4-4.8); Alkaline Phosphatase 106 U/L (40-110); Anion Gap 11 mmol/L (10-20); BUN (Urea Nitrogen) 15 mg/dL (8.4-25.7); Bilirubin, Total 0.5 mg/dL (0.2-1.2); Calc. Creatinine Clearance 0 mL/min (70-130); Calcium 9.2 mg/dL (7.8-10.44); Carbon Dioxide 33 mmol/L (23-31); Chloride 101 mmol/L (98-107); Globulin 3.1 g/dL (2.4-3.5); Glucose 254 mg/dL (80-115); Potassium 3.2 mmol/L (3.5-5.1); Protein, Total 7.3 g/dL (5.8-8.1); Sodium 142 mmol/L (136-145)
[2021-03-29 20:02] LABS: CKMB 2.7 ng/mL (0-6.6)
[2021-03-29] MEDS ORDERED: Acetaminophen 500 MG TAB ONE (20:45)
[2021-03-29] MEDS ORDERED: hydrALAZINE 20 MG/ML VIAL ONE (20:45)
[2021-03-29] MEDS ORDERED: Enoxaparin Sodium 80 MG/0.8 ML SYRINGE ONE (20:50)
[2021-03-29] MEDS ORDERED: Ondansetron PF 4 MG/2 ML Vial IVP PRN (20:52)
[2021-03-29] MEDS ORDERED: HYDROcodone/Acetaminophen 5/325 mg Tablet PO PRN (20:52)
[2021-03-29] MEDS ORDERED: Ondansetron ODT 4 MG TAB PO PRN (20:52)
[2021-03-29] MEDS ORDERED: niCARdipine 25 MG in Sodium Chloride 0.9% 250 ML 240 ML IVPB SCH (21:00)
[2021-03-29] MEDS ORDERED: Clopidogrel Bisulfate 300 MG TAB PO SCH (21:00)
[2021-03-29] MEDS ORDERED: Potassium Chloride 20 MEQ TAB PO SCH (21:15)
[2021-03-29] MEDS ORDERED: Dextrose 5% in Water 1,000 ML IV PRN (23:06)
[2021-03-29] MEDS ORDERED: Dextrose 50% Abboject 50 ML SYRINGE SLOW IVP PRN (23:06)
[2021-03-29 23:31] VITALS: BMI 27.1
[2021-03-29] MEDS: HumaLOG 300 UNITS/3 ML VIAL SC PRN (23:31)
[2021-03-29 23:44] LABS: Troponin I 0.044 ng/mL (< 0.028)
[2021-03-30 00:28] LABS: SARS-CoV-2 NAA Rapid Test Not Detected (NotDetected)
[2021-03-30 01:46] LABS: Troponin I 0.034 ng/mL (< 0.028)
[2021-03-30 02:48] LABS: Amphetamine Not Detected (NotDetected); Barbiturates Screen Not Detected (NotDetected); Benzodiazepine Screen Not Detected (NotDetected); Cocaine Metabolite Screen Detected (NotDetected); Medtox Control Line Valid? VALID (VALID); Medtox Reader # READER 4; Methadone Not Detected (NotDetected); Methamphetamine Not Detected (NotDetected); Opiate Screen Not Detected (NotDetected); Oxycodone Screen Not Detected (NotDetected); Phencyclidine (PCP) Not Detected (NotDetected); THC/Cannabinoid Screen Not Detected (NotDetected); Tricyclic Screen Not Detected (NotDetected)
[2021-03-30] MEDS: Acetaminophen 325 MG TAB PO PRN ×2 (02:52→10:19)
[2021-03-30 05:06] LABS: #Basophils 0.1 thou/uL (0.0-0.2); #Eosinphils 0.5 thou/uL (0.0-0.7); #Lymphocytes 2.8 thou/uL (1.20-3.40); #Neutrophils 5.5 thou/uL (1.40-6.50); %Basophils 0.9 % (0.0-1.0); %Eosinophils 5.2 % (0.0-10.0); %Lymphocytes 28.8 % (21.0-51.0); %Monocytes 9.7 % (0.0-10.0); %Neutrophils 55.5 % (42.0-75.0); Hemoglobin 15.3 g/dL (14.0-18.0); Mean Corpuscular HGB CONC 32.6 g/dL (32.0-36.0); Mean Corpuscular Hemoglobin 28.9 pg (27.0-31.0); Mean Corpuscular Volume 88.6 fL (78.0-98.0); Mean Platelet Volume 9.3 fL (7.4-10.4); Platelet Count 196 thou/uL (130-400); RBC Distribution Width 13.3 % (11.5-14.5); White Blood Cell (WBC) Count 9.9 thou/uL (4.8-10.8)
[2021-03-30 05:27] LABS: Anion Gap 11 mmol/L (10-20); BUN (Urea Nitrogen) 15 mg/dL (8.4-25.7); Calc. Creatinine Clearance 72 mL/min (70-130); Calcium 8.8 mg/dL (7.8-10.44); Carbon Dioxide 29 mmol/L (23-31); Chloride 101 mmol/L (98-107); Glucose 172 mg/dL (80-115); Magnesium 1.9 mg/dL (1.6-2.6); Potassium 3.2 mmol/L (3.5-5.1); Sodium 138 mmol/L (136-145)
[2021-03-30] MEDS ORDERED: Potassium Chloride 20 MEQ TAB PO SCH (08:00)
[2021-03-30] MEDS: Aspirin Chewable 81 MG TAB PO SCH (10:19)
[2021-03-30] MEDS ORDERED: cloNIDine 0.1 MG TAB PO PRN (11:29)
[2021-03-30] MEDS: Enoxaparin Sodium 80 MG/0.8 ML SYRINGE SC SCH ×2 (11:42→21:07)
[2021-03-30] MEDS: HumaLOG 300 UNITS/3 ML VIAL SC PRN ×3 (12:09→21:25)
[2021-03-30] MEDS ORDERED: Lisinopril 5 MG TAB PO SCH (13:00)
[2021-03-30] MEDS ORDERED: hydrALAZINE 25 MG TAB PO PRN (14:03)
[2021-03-30] MEDS ORDERED: Lisinopril 20 MG TAB PO SCH (17:30)
[2021-03-30] MEDS: hydrALAZINE 20 MG/ML VIAL SLOW IVP PRN (21:07)
[2021-03-31] MEDS: hydrALAZINE 20 MG/ML VIAL SLOW IVP PRN (04:46)
[2021-03-31] MEDS: HumaLOG 300 UNITS/3 ML VIAL SC PRN (06:00)
[2021-03-31] MEDS ORDERED: Sodium Chloride 0.65% Nasal 44 ML BOT EA NARE PRN (08:10)
[2021-03-31] MEDS ORDERED: GUAIFENESIN SF SOLN 200 MG/10 ML UDCUP PO PRN (08:10)
[2021-03-31] MEDS ORDERED: Senokot S 8.6-50 MG TAB PO PRN (08:10)
[2021-03-31] MEDS ORDERED: Cepastat Lozenges 1 LOZ PO PRN (08:10)
[2021-03-31] MEDS ORDERED: Bisacodyl 5 MG TAB PO PRN (08:10)
[2021-03-31] MEDS ORDERED: Loratadine 10 MG TAB PO PRN (08:10)
[2021-03-31] MEDS ORDERED: Calcium Carbonate 500 MG ChewTAB PO PRN (08:10)
[2021-03-31] MEDS ORDERED: Loperamide HCl 2 MG CAP PO PRN (08:10)
[2021-03-31] MEDS ORDERED: Zolpidem Tartrate 5 MG TAB PO PRN (08:10)
[2021-03-31 08:13] VITALS: BP 168/84; TEMP 97.6
[2021-03-31] MEDS: Enoxaparin Sodium 80 MG/0.8 ML SYRINGE SC SCH (08:25)
[2021-03-31] MEDS: Aspirin Chewable 81 MG TAB PO SCH (08:25)
[2021-03-31 09:27] LABS: #Basophils 0.1 thou/uL (0.0-0.2); #Eosinphils 0.4 thou/uL (0.0-0.7); #Lymphocytes 2.2 thou/uL (1.20-3.40); #Monocytes 0.8 thou/uL (0.11-0.59); #Neutrophils 4.9 thou/uL (1.40-6.50); %Basophils 1.1 % (0.0-1.0); %Eosinophils 5.2 % (0.0-10.0); %Lymphocytes 26.1 % (21.0-51.0); %Neutrophils 58.6 % (42.0-75.0); Hemoglobin 16.9 g/dL (14.0-18.0); Mean Corpuscular HGB CONC 32.4 g/dL (32.0-36.0); Mean Corpuscular Hemoglobin 29.3 pg (27.0-31.0); Mean Corpuscular Volume 90.4 fL (78.0-98.0); Mean Platelet Volume 9.5 fL (7.4-10.4); Platelet Count 188 thou/uL (130-400); RBC Distribution Width 13.4 % (11.5-14.5); Red Blood Cell (RBC) Count 5.77 mill/uL (4.70-6.10); White Blood Cell (WBC) Count 8.3 thou/uL (4.8-10.8)
[2021-03-31 09:35] LABS: Hemoglobin A1c 9.7 % (4.0-6.0)
[2021-03-31 09:48] LABS: Anion Gap 11 mmol/L (10-20); BUN (Urea Nitrogen) 17 mg/dL (8.4-25.7); Calc. Creatinine Clearance 63 mL/min (70-130); Calcium 9.4 mg/dL (7.8-10.44); Carbon Dioxide 28 mmol/L (23-31); Cardiac Risk 4.8 (Less than 4.5); Chloride 103 mmol/L (98-107); Cholesterol 232 mg/dl (< 200 Desired); Glucose 191 mg/dL (80-115); HDL Cholesterol 48 mg/dL (>60 Neg Risk); LDL Cholesterol, Calculated 148 mg/dL; Potassium 3.3 mmol/L (3.5-5.1); Sodium 139 mmol/L (136-145); Triglycerides 180 mg/dL (Less than 150)
[2021-03-31] MEDS ORDERED: Amlodipine 10 MG TAB PO SCH (10:45)
[2021-03-31] MEDS ORDERED: Potassium Chloride 20 MEQ TAB PO SCH (10:45)
[2021-03-31] MEDS ORDERED: Lisinopril 20 MG TAB PO SCH (13:00)
[2021-03-31] MEDS ORDERED: Atorvastatin Calcium 40 MG TAB PO SCH (21:00)
[2021-04-01] MEDS ORDERED: Enoxaparin Sodium 40 MG/0.4 ML SYRINGE SC SCH (09:00)
[2021-04-01] MEDS ORDERED: Amlodipine 10 MG TAB PO SCH (09:00)
== END 2021-03-31 11:36 | disposition home or self-care (01) ==
LOC: ERS 18:17 → 2SW 20:38
PROVIDERS: ADMIT Student in an Organized Health Care Education/Training Program; ATTEND Internal Medicine
DX: I16.0 Hypertensive urgency (principal); F14.10 Cocaine abuse, uncomplicated; R07.89 Other chest pain; E87.6 Hypokalemia; I11.9 Hypertensive heart disease without heart failure; F17.210 Nicotine dependence, cigarettes, uncomplicated; I21.A1 Myocardial infarction type 2; E78.5 Hyperlipidemia, unspecified; E11.9 Type 2 diabetes mellitus without complications; J20.9 Acute bronchitis, unspecified; I07.1 Rheumatic tricuspid insufficiency; Z86.73 Personal history of transient ischemic attack (TIA), and cerebral infarction without residual deficits; Z79.82 Long term (current) use of aspirin; Z79.84 Long term (current) use of oral hypoglycemic drugs; Z79.899 Other long term (current) drug therapy; Z20.822 Contact with and (suspected) exposure to COVID-19
CPT/HCPCS: 70450; 71045; 80048 ×2; 80053; 80061; 80306; 82553; 82962 ×3; 83036; 83735 ×3; 83880; 84484 ×3; 85025 ×3; 93005; 93306; 94760 ×2; 96372 ×3; 96374; 96376 ×2; 99285; G0378 ×4; U0002; U0005; 36415; 36416; J0360; J1650; J1815

== ENCOUNTER 2021-05-02 16:06 | Emergency (ER) | payer MEDICARE ==
[~2021-05-02 16:06] MED LIST: Iopamidol-370 76% 500 ML 1 ML ONE
[2021-05-02 17:19] LABS: #Basophils 0.1 thou/uL (0.0-0.2); #Eosinphils 0.4 thou/uL (0.0-0.7); #Lymphocytes 2.2 thou/uL (1.20-3.40); #Monocytes 0.7 thou/uL (0.11-0.59); #Neutrophils 3.1 thou/uL (1.40-6.50); %Basophils 0.8 % (0.0-1.0); %Eosinophils 5.9 % (0.0-10.0); %Lymphocytes 33.7 % (21.0-51.0); %Monocytes 11.4 % (0.0-10.0); %Neutrophils 48.2 % (42.0-75.0); Hemoglobin 15.6 g/dL (14.0-18.0); Mean Corpuscular Hemoglobin 30.3 pg (27.0-31.0); Mean Platelet Volume 8.8 fL (7.4-10.4); Platelet Count 192 thou/uL (130-400); RBC Distribution Width 13.2 % (11.5-14.5); Red Blood Cell (RBC) Count 5.14 mill/uL (4.70-6.10); White Blood Cell (WBC) Count 6.4 thou/uL (4.8-10.8)
[2021-05-02 17:42] LABS: ALT (SGPT) 12 U/L (8-55); AST (SGOT) 11 U/L (5-34); Albumin 3.9 g/dL (3.4-4.8); Alkaline Phosphatase 132 U/L (40-110); Anion Gap 17 mmol/L (10-20); BUN (Urea Nitrogen) 21 mg/dL (8.4-25.7); Bilirubin, Total 0.2 mg/dL (0.2-1.2); CK (CPK) 84 U/L (30-200); Calc. Creatinine Clearance 0 mL/min (70-130); Calcium 8.8 mg/dL (7.8-10.44); Carbon Dioxide 24 mmol/L (23-31); Chloride 100 mmol/L (98-107); Globulin 2.5 g/dL (2.4-3.5); Glucose 363 mg/dL (80-115); Potassium 3.5 mmol/L (3.5-5.1); Protein, Total 6.4 g/dL (5.8-8.1); Sodium 137 mmol/L (136-145)
[2021-05-02 18:05] LABS: CKMB 2.3 ng/mL (0-6.6)
[2021-05-02] MEDS ORDERED: Morphine 4 MG/ML VIAL ONE (19:19)
[2021-05-02 22:20] LABS: Troponin I 0.046 ng/mL (< 0.028)
[2021-05-02] MEDS ORDERED: HYDROcodone/Acetaminophen 5/325 mg Tablet ONE (23:41)
== END 2021-05-02 23:42 | disposition home or self-care (01) ==
LOC: ERS 16:06
DX: R07.9 Chest pain, unspecified (principal); E11.9 Type 2 diabetes mellitus without complications; I10 Essential (primary) hypertension; F17.210 Nicotine dependence, cigarettes, uncomplicated; Z79.899 Other long term (current) drug therapy; Z79.84 Long term (current) use of oral hypoglycemic drugs
CPT/HCPCS: 36415; 71045; 71275; 74177; 80053; 82550; 82553; 84484; 85025; 85379; 93005; 96374; J2270; Q9967

== ENCOUNTER 2021-10-28 10:39 | Emergency (ER) | payer MEDICARE ==
[2021-10-28] MEDS ORDERED: Boostrix 0.5 ML (Tdap) VIAL ONE (11:43)
[2021-10-28] MEDS ORDERED: Bupivacaine 0.5% 10 ML VIAL ONE (11:43)
== END 2021-10-28 13:02 | disposition home or self-care (01) ==
LOC: ERS 10:39
DX: L03.012 Cellulitis of left finger (principal); I10 Essential (primary) hypertension; E11.9 Type 2 diabetes mellitus without complications; I25.2 Old myocardial infarction; Z86.73 Personal history of transient ischemic attack (TIA), and cerebral infarction without residual deficits; F17.210 Nicotine dependence, cigarettes, uncomplicated
CPT/HCPCS: 26010; 90471; 90715; J3490

== ENCOUNTER 2021-11-20 15:47 | Emergency (ER) | payer MEDICARE ==
[2021-11-20 17:06] LABS: #Basophils 0.1 thou/uL (0.0-0.2); #Eosinphils 0.4 thou/uL (0.0-0.7); #Lymphocytes 2.3 thou/uL (1.20-3.40); #Monocytes 0.7 thou/uL (0.11-0.59); #Neutrophils 4.5 thou/uL (1.40-6.50); %Basophils 0.9 % (0.0-1.0); %Eosinophils 4.8 % (0.0-10.0); %Lymphocytes 28.9 % (21.0-51.0); %Monocytes 8.3 % (0.0-10.0); %Neutrophils 57.1 % (42.0-75.0); Hemoglobin 15.1 g/dL (14.0-18.0); Mean Corpuscular HGB CONC 33.5 g/dL (32.0-36.0); Mean Corpuscular Hemoglobin 29.4 pg (27.0-31.0); Mean Corpuscular Volume 87.7 fL (78.0-98.0); Mean Platelet Volume 8.7 fL (7.4-10.4); Platelet Count 214 thou/uL (130-400); RBC Distribution Width 13.1 % (11.5-14.5); Red Blood Cell (RBC) Count 5.16 mill/uL (4.70-6.10)
[2021-11-20 17:28] LABS: ALT (SGPT) 21 U/L (8-55); AST (SGOT) 16 U/L (5-34); Alkaline Phosphatase 109 U/L (40-110); Anion Gap 15 mmol/L (10-20); BUN (Urea Nitrogen) 18 mg/dL (8.4-25.7); Bilirubin, Total 0.2 mg/dL (0.2-1.2); Calc. Creatinine Clearance 0 mL/min (70-130); Calcium 8.6 mg/dL (7.8-10.44); Carbon Dioxide 26 mmol/L (23-31); Chloride 101 mmol/L (98-107); Glucose 216 mg/dL (80-115); Lipase 38 U/L (8-78); Potassium 3.8 mmol/L (3.5-5.1); Sodium 138 mmol/L (136-145)
[2021-11-20 17:57] LABS: CKMB 2.2 ng/mL (0-6.6)
[2021-11-20 20:28] LABS: Bilirubin Negative (Negative); Blood, Urine Negative (Negative); Clarity Clear (Clear); Glucose, Urine (Dipstick) 200 mg/dL (Negative); Ketone, Urine Negative (Negative); Leukocyte Negative Leu/uL (Negative); Nitrite Negative (Negative); Protein, Urine (Dipstick) 10 mg/dL (Neg-Trace); Specific Gravity, Urine 1.012 (1.002-1.036); Urobilinogen Normal mg/dL (Less than 2)
[2021-11-20 20:44] LABS: Troponin I 0.042 ng/mL (< 0.028)
== END 2021-11-20 21:13 | disposition home or self-care (01) ==
LOC: ERS 15:47
DX: I10 Essential (primary) hypertension (principal); R07.89 Other chest pain; E11.9 Type 2 diabetes mellitus without complications; F17.210 Nicotine dependence, cigarettes, uncomplicated; I25.2 Old myocardial infarction; Z86.73 Personal history of transient ischemic attack (TIA), and cerebral infarction without residual deficits
CPT/HCPCS: 36415; 71045; 80053; 81003; 82553; 83690; 84484; 85025; 93005

== ENCOUNTER 2021-11-28 08:38 | Outpatient (CLI) | payer MEDICARE ==
[2021-11-28] MEDS ORDERED: Iopamidol 370 76% 100 ML VIAL ONE (09:31)
== END 2021-11-28 08:39 | disposition home or self-care (01) ==
LOC: CT 08:38
PROVIDERS: ATTEND Family Medicine
DX: C64.1 Malignant neoplasm of right kidney, except renal pelvis (principal); N28.1 Cyst of kidney, acquired
CPT/HCPCS: 74177; Q9967

== ENCOUNTER 2022-03-30 10:51 | Emergency (ER) | payer OTHER, MEDICARE ==
[2022-03-30] MEDS ORDERED: traMADol HCl 50 MG TAB ONE (12:02)
[2022-03-30] MEDS ORDERED: Acetaminophen 500 MG TAB ONE (12:03)
[2022-03-30 13:02] LABS: #Eosinphils 0.4 thou/uL (0.0-0.7); #Lymphocytes 2.3 thou/uL (1.20-3.40); #Monocytes 0.6 thou/uL (0.11-0.59); #Neutrophils 3.7 thou/uL (1.40-6.50); %Basophils 0.6 % (0.0-1.0); %Eosinophils 5.4 % (0.0-10.0); %Lymphocytes 32.8 % (21.0-51.0); %Monocytes 8.6 % (0.0-10.0); %Neutrophils 52.6 % (42.0-75.0); Mean Corpuscular HGB CONC 31.9 g/dL (32.0-36.0); Mean Corpuscular Hemoglobin 29.5 pg (27.0-31.0); Mean Corpuscular Volume 92.4 fL (78.0-98.0); Mean Platelet Volume 8.7 fL (7.4-10.4); Platelet Count 209 thou/uL (130-400); RBC Distribution Width 13.8 % (11.5-14.5); Red Blood Cell (RBC) Count 5.08 mill/uL (4.70-6.10); White Blood Cell (WBC) Count 7.1 thou/uL (4.8-10.8)
[2022-03-30 13:21] LABS: Anion Gap 12 mmol/L (10-20); BUN (Urea Nitrogen) 19 mg/dL (8.4-25.7); Calc. Creatinine Clearance 0 mL/min (70-130); Carbon Dioxide 27 mmol/L (23-31); Chloride 104 mmol/L (98-107); Glucose 310 mg/dL (80-115); Potassium 4.6 mmol/L (3.5-5.1); Sodium 138 mmol/L (136-145)
[2022-03-30] MEDS ORDERED: Iopamidol-370 76% 500 ML 1 ML ONE (16:26)
== END 2022-03-30 14:59 | disposition home or self-care (01) ==
LOC: ERS 10:51
DX: S20.212A Contusion of left front wall of thorax, initial encounter (principal); R10.12 Left upper quadrant pain; I10 Essential (primary) hypertension; E11.9 Type 2 diabetes mellitus without complications; I25.2 Old myocardial infarction; N28.1 Cyst of kidney, acquired; F17.210 Nicotine dependence, cigarettes, uncomplicated; V48.3XXA Unspecified car occupant injured in noncollision transport accident in nontraffic accident, initial encounter; Y93.39 Activity, other involving climbing, rappelling and jumping off; Z86.73 Personal history of transient ischemic attack (TIA), and cerebral infarction without residual deficits; Z85.528 Personal history of other malignant neoplasm of kidney; Z79.899 Other long term (current) drug therapy
CPT/HCPCS: 36415; 71045; 71260; 74177; 80048; 85025; Q9967

== ENCOUNTER 2022-04-18 09:54 | Emergency (ER) | payer MEDICARE ==
[2022-04-18] MEDS ORDERED: Ketorolac Tromethamine 30 MG/ML VIAL ONE (12:35)
== END 2022-04-18 12:50 | disposition home or self-care (01) ==
LOC: ERS 09:54
DX: S39.012A Strain of muscle, fascia and tendon of lower back, initial encounter (principal); I10 Essential (primary) hypertension; E11.9 Type 2 diabetes mellitus without complications; F17.210 Nicotine dependence, cigarettes, uncomplicated; Z79.84 Long term (current) use of oral hypoglycemic drugs; Z79.899 Other long term (current) drug therapy; W19.XXXA Unspecified fall, initial encounter
CPT/HCPCS: 96372; 99283; J1885

== ENCOUNTER 2022-05-06 16:09 | Inpatient (IN) | payer MEDICARE ==
[~2022-05-06 16:09] MED LIST changes: +ISOVUE-370 76%-LOCM 1 ML ONE; -Iopamidol-370 76% 500 ML 1 ML ONE
[2022-05-06] MEDS ORDERED: Nitroglycerin 2% Ointment 1 INCH/1 GM Packet ONE (16:30)
[2022-05-06] MEDS ORDERED: hydrALAZINE 20 MG/ML VIAL ONE (16:37)
[2022-05-06] MEDS ORDERED: Aspirin Chewable 81 MG TAB ONE (16:37)
[2022-05-06 16:44] LABS: #Eosinphils 0.3 thou/uL (0.0-0.7); #Lymphocytes 1.8 thou/uL (1.20-3.40); #Monocytes 0.5 thou/uL (0.11-0.59); #Neutrophils 4.9 thou/uL (1.40-6.50); %Basophils 0.4 % (0.0-1.0); %Eosinophils 3.6 % (0.0-10.0); %Lymphocytes 23.9 % (21.0-51.0); %Monocytes 6.9 % (0.0-10.0); %Neutrophils 65.2 % (42.0-75.0); Hemoglobin 15.2 g/dL (14.0-18.0); Mean Corpuscular HGB CONC 32.4 g/dL (32.0-36.0); Mean Corpuscular Hemoglobin 29.4 pg (27.0-31.0); Mean Corpuscular Volume 90.5 fL (78.0-98.0); Mean Platelet Volume 8.9 fL (7.4-10.4); Platelet Count 198 thou/uL (130-400); RBC Distribution Width 13.3 % (11.5-14.5); Red Blood Cell (RBC) Count 5.16 mill/uL (4.70-6.10); White Blood Cell (WBC) Count 7.5 thou/uL (4.8-10.8)
[2022-05-06 17:05] LABS: ALT (SGPT) 16 U/L (8-55); AST (SGOT) 11 U/L (5-34); Albumin 3.9 g/dL (3.4-4.8); Alkaline Phosphatase 123 U/L (40-110); Anion Gap 14 mmol/L (10-20); BUN (Urea Nitrogen) 16 mg/dL (8.4-25.7); Bilirubin, Total 0.4 mg/dL (0.2-1.2); CK (CPK) 71 U/L (30-200); Calc. Creatinine Clearance 0 mL/min (70-130); Carbon Dioxide 26 mmol/L (23-31); Chloride 101 mmol/L (98-107); Estimated GFR 65; Globulin 3.2 g/dL (2.4-3.5); Glucose 362 mg/dL (80-115); Lipase 29 U/L (8-78); Potassium 3.7 mmol/L (3.5-5.1); Protein, Total 7.1 g/dL (5.8-8.1); Sodium 137 mmol/L (136-145)
[2022-05-06 17:26] LABS: CKMB 1.9 ng/mL (0-6.6)
[2022-05-06] MEDS ORDERED: Enoxaparin Sodium 80 MG/0.8 ML SYRINGE ONE (17:43)
[2022-05-06] MEDS ORDERED: Ondansetron ODT 4 MG TAB PO PRN (17:54)
[2022-05-06] MEDS ORDERED: Ondansetron PF 4 MG/2 ML Vial IVP PRN (17:54)
[2022-05-06] MEDS ORDERED: hydrALAZINE 20 MG/ML VIAL SLOW IVP PRN (17:55)
[2022-05-06] MEDS ORDERED: Sodium Chloride 0.9% 1,000 ML IV SCH (18:00)
[2022-05-06] MEDS ORDERED: Labetalol HCl 100 MG/20 ML VIAL ONE (18:45)
[2022-05-06] MEDS ORDERED: Dextrose 5% in Water 1,000 ML IV PRN (19:43)
[2022-05-06] MEDS ORDERED: Nitroglycerin 0.4 MG TAB (25 Tab Bottle) SL PRN (19:43)
[2022-05-06] MEDS ORDERED: Acetaminophen 325 MG TAB PO PRN (19:43)
[2022-05-06] MEDS ORDERED: Zolpidem Tartrate 5 MG TAB PO PRN (19:43)
[2022-05-06] MEDS ORDERED: HumaLOG 300 UNITS/3 ML VIAL SC PRN (19:43)
[2022-05-06] MEDS ORDERED: Dextrose 50% Abboject 50 ML SYRINGE SLOW IVP PRN (19:43)
[2022-05-06] MEDS ORDERED: hydrALAZINE 25 MG TAB PO SCH (19:45)
[2022-05-06] MEDS ORDERED: Morphine 2 MG/ML VIAL SLOW IVP SCH (19:45)
[2022-05-06] MEDS ORDERED: Aspirin 325 MG TAB PO SCH (19:45)
[2022-05-06 20:08] LABS: Troponin I 0.038 ng/mL (< 0.028)
[2022-05-06 21:16] VITALS: BMI 28.8
[2022-05-06] MEDS: Sodium Chloride 0.9% 1,000 ML IV SCH (21:38)
[2022-05-06] MEDS: Nicotine 14 MG PATCH TD SCH (21:38)
[2022-05-06] MEDS: Famotidine 20 MG TAB PO SCH (21:38)
[2022-05-06 23:05] LABS: Amphetamine Not Detected (NotDetected); Barbiturates Screen Not Detected (NotDetected); Benzodiazepine Screen Not Detected (NotDetected); Cocaine Metabolite Screen Detected (NotDetected); Methadone Not Detected (NotDetected); Methamphetamine Not Detected (NotDetected); Opiate Screen Not Detected (NotDetected); Oxycodone Screen Not Detected (NotDetected); Phencyclidine (PCP) Not Detected (NotDetected); THC/Cannabinoid Screen Not Detected (NotDetected); Tricyclic Screen Not Detected (NotDetected)
[2022-05-07] MEDS: hydrALAZINE 20 MG/ML VIAL SLOW IVP PRN (03:04)
[2022-05-07] MEDS: Morphine 2 MG/ML VIAL SLOW IVP PRN ×3 (03:33→21:02)
[2022-05-07 04:27] LABS: #Eosinphils 0.3 thou/uL (0.0-0.7); #Lymphocytes 2.5 thou/uL (1.20-3.40); #Monocytes 0.8 thou/uL (0.11-0.59); #Neutrophils 4.3 thou/uL (1.40-6.50); %Basophils 0.6 % (0.0-1.0); %Eosinophils 4.3 % (0.0-10.0); %Lymphocytes 31.4 % (21.0-51.0); %Monocytes 9.6 % (0.0-10.0); %Neutrophils 54.2 % (42.0-75.0); Hemoglobin 14.2 g/dL (14.0-18.0); Mean Corpuscular HGB CONC 32.2 g/dL (32.0-36.0); Mean Corpuscular Hemoglobin 29.1 pg (27.0-31.0); Mean Corpuscular Volume 90.4 fL (78.0-98.0); Mean Platelet Volume 8.8 fL (7.4-10.4); Platelet Count 190 thou/uL (130-400); RBC Distribution Width 13.3 % (11.5-14.5); Red Blood Cell (RBC) Count 4.86 mill/uL (4.70-6.10); White Blood Cell (WBC) Count 7.9 thou/uL (4.8-10.8)
[2022-05-07 04:54] LABS: ALT (SGPT) 14 U/L (8-55); AST (SGOT) 11 U/L (5-34); Albumin 3.6 g/dL (3.4-4.8); Alkaline Phosphatase 92 U/L (40-110); Anion Gap 11 mmol/L (10-20); BUN (Urea Nitrogen) 18 mg/dL (8.4-25.7); Bilirubin, Total 0.3 mg/dL (0.2-1.2); Calc. Creatinine Clearance 73 mL/min (70-130); Calcium 9.1 mg/dL (7.8-10.44); Carbon Dioxide 25 mmol/L (23-31); Chloride 104 mmol/L (98-107); Cholesterol 232 mg/dl (< 200 Desired); Estimated GFR 74; Globulin 2.9 g/dL (2.4-3.5); Glucose 215 mg/dL (80-115); HDL Cholesterol 46 mg/dL (>60 Neg Risk); LDL Cholesterol, Calculated 151 mg/dL; Potassium 3.2 mmol/L (3.5-5.1); Protein, Total 6.5 g/dL (5.8-8.1); Sodium 137 mmol/L (136-145); Triglycerides 176 mg/dL (Less than 150)
[2022-05-07] MEDS ORDERED: metFORMIN 500 MG TAB PO SCH (08:00)
[2022-05-07] MEDS ORDERED: Nicotine 21 MG PATCH TD SCH (09:00)
[2022-05-07] MEDS: NIFEdipine XL 90 MG TAB PO SCH (09:20)
[2022-05-07] MEDS: Aspirin Chewable 81 MG TAB PO SCH (09:20)
[2022-05-07] MEDS: Enoxaparin Sodium 40 MG/0.4 ML SYRINGE SC SCH (09:20)
[2022-05-07] MEDS: Clopidogrel Bisulfate 75 MG TAB PO SCH (09:21)
[2022-05-07] MEDS: Lisinopril 20 MG TAB PO SCH (09:21)
[2022-05-07] MEDS: Potassium Chloride 20 MEQ TAB PO SCH ×2 (14:29→16:41)
[2022-05-07] MEDS: Famotidine 20 MG TAB PO SCH ×2 (14:30→21:02)
[2022-05-07 15:07] LABS: Troponin I 0.034 ng/mL (< 0.028)
[2022-05-07] MEDS: metFORMIN 500 MG TAB PO SCH (16:41)
[2022-05-07] MEDS: HumaLOG 300 UNITS/3 ML VIAL SC PRN (17:57)
[2022-05-07] MEDS: Sodium Chloride 0.9% 1,000 ML IV SCH (19:30)
[2022-05-07] MEDS: Nicotine 14 MG PATCH TD SCH (21:02)
[2022-05-08] MEDS: HumaLOG 300 UNITS/3 ML VIAL SC PRN ×2 (05:32→12:18)
[2022-05-08] MEDS: Enoxaparin Sodium 40 MG/0.4 ML SYRINGE SC SCH (09:13)
[2022-05-08] MEDS: Lisinopril 20 MG TAB PO SCH (09:13)
[2022-05-08] MEDS: metFORMIN 500 MG TAB PO SCH ×2 (09:13→16:51)
[2022-05-08] MEDS: Clopidogrel Bisulfate 75 MG TAB PO SCH (09:13)
[2022-05-08] MEDS: Aspirin Chewable 81 MG TAB PO SCH (09:13)
[2022-05-08] MEDS: NIFEdipine XL 90 MG TAB PO SCH (09:13)
[2022-05-08] MEDS: Famotidine 20 MG TAB PO SCH ×2 (09:13→20:37)
[2022-05-08] MEDS: Sodium Chloride 0.9% 1,000 ML IV SCH (12:19)
[2022-05-08] MEDS: Morphine 2 MG/ML VIAL SLOW IVP PRN ×2 (15:08→20:37)
[2022-05-08] MEDS: Amlodipine 10 MG TAB PO SCH (20:36)
[2022-05-08] MEDS: cloNIDine 0.1 MG TAB PO SCH (20:36)
[2022-05-08] MEDS: Nicotine 14 MG PATCH TD SCH (20:36)
[2022-05-09 07:47] LABS: Anion Gap 11 mmol/L (10-20); BUN (Urea Nitrogen) 17 mg/dL (8.4-25.7); Calc. Creatinine Clearance 71 mL/min (70-130); Calcium 9.1 mg/dL (7.8-10.44); Carbon Dioxide 26 mmol/L (23-31); Chloride 103 mmol/L (98-107); Estimated GFR 71; Glucose 133 mg/dL (80-115); Potassium 3.6 mmol/L (3.5-5.1); Sodium 136 mmol/L (136-145)
[2022-05-09] MEDS: metFORMIN 500 MG TAB PO SCH ×2 (09:52→16:37)
[2022-05-09] MEDS: Lisinopril 20 MG TAB PO SCH (09:53)
[2022-05-09] MEDS: Famotidine 20 MG TAB PO SCH ×2 (09:53→21:02)
[2022-05-09] MEDS: Enoxaparin Sodium 40 MG/0.4 ML SYRINGE SC SCH (09:53)
[2022-05-09] MEDS: Aspirin Chewable 81 MG TAB PO SCH (09:53)
[2022-05-09] MEDS: NIFEdipine XL 90 MG TAB PO SCH (09:53)
[2022-05-09] MEDS: HumaLOG 300 UNITS/3 ML VIAL SC PRN (12:21)
[2022-05-09] MEDS ORDERED: Ondansetron PF 4 MG/2 ML Vial IVP PRN (20:40)
[2022-05-09] MEDS: hydrALAZINE 20 MG/ML VIAL SLOW IVP PRN (20:58)
[2022-05-09] MEDS: cloNIDine 0.1 MG TAB PO SCH (21:02)
[2022-05-09] MEDS: Nicotine 14 MG PATCH TD SCH (21:02)
[2022-05-09] MEDS: Amlodipine 10 MG TAB PO SCH (21:02)
[2022-05-09] MEDS: HYDROcodone/Acetaminophen 7.5/325 mg Tablet PO PRN (21:03)
[2022-05-10 04:47] LABS: Anion Gap 13 mmol/L (10-20); BUN (Urea Nitrogen) 25 mg/dL (8.4-25.7); Calc. Creatinine Clearance 63 mL/min (70-130); Calcium 9.3 mg/dL (7.8-10.44); Carbon Dioxide 24 mmol/L (23-31); Chloride 102 mmol/L (98-107); Estimated GFR 62; Glucose 138 mg/dL (80-115); Potassium 3.6 mmol/L (3.5-5.1); Sodium 135 mmol/L (136-145)
[2022-05-10] MEDS: Lisinopril 20 MG TAB PO SCH (09:29)
[2022-05-10] MEDS: metFORMIN 500 MG TAB PO SCH (09:29)
[2022-05-10] MEDS: Enoxaparin Sodium 40 MG/0.4 ML SYRINGE SC SCH (09:30)
[2022-05-10] MEDS: Famotidine 20 MG TAB PO SCH (09:30)
[2022-05-10] MEDS: NIFEdipine XL 90 MG TAB PO SCH (09:30)
[2022-05-10] MEDS: Aspirin Chewable 81 MG TAB PO SCH (09:30)
[2022-05-10] MEDS: HYDROcodone/Acetaminophen 7.5/325 mg Tablet PO PRN (09:33)
[2022-05-10] MEDS: HumaLOG 300 UNITS/3 ML VIAL SC PRN (10:43)
[2022-05-10 12:00] VITALS: BP 159/77; TEMP 97.2
== END 2022-05-10 12:42 | disposition home or self-care (01) | DRG 917 ==
LOC: ERS 16:09 → 2NO 17:45
PROVIDERS: ADMIT Internal Medicine; ATTEND Internal Medicine
DX: T40.5X2A Poisoning by cocaine, intentional self-harm, initial encounter (principal); I21.4 Non-ST elevation (NSTEMI) myocardial infarction; I16.0 Hypertensive urgency; I10 Essential (primary) hypertension; Z20.822 Contact with and (suspected) exposure to COVID-19; E11.9 Type 2 diabetes mellitus without complications; I25.10 Atherosclerotic heart disease of native coronary artery without angina pectoris; E11.65 Type 2 diabetes mellitus with hyperglycemia; F41.9 Anxiety disorder, unspecified; F17.210 Nicotine dependence, cigarettes, uncomplicated; F14.90 Cocaine use, unspecified, uncomplicated; N28.89 Other specified disorders of kidney and ureter; Z79.84 Long term (current) use of oral hypoglycemic drugs; I25.2 Old myocardial infarction; Z79.899 Other long term (current) drug therapy; Z91.14 Patient's other noncompliance with medication regimen
CPT/HCPCS: 36415; 36416; 71045; 71275; 80048; 80053; 80061; 80306; 82550; 82553; 83690; 84484; 85025; 93005; 94760; 96372; 96374; 96375; J0360; J1650; J1815; J2270; J2405; J7050; Q9966; U0003; U0005

== ENCOUNTER 2022-06-19 13:33 | Observation (INO) | payer MEDICARE ==
[2022-06-19] MEDS ORDERED: Aspirin Chewable 81 MG TAB ONE (16:39)
[2022-06-19] MEDS ORDERED: Bacitracin 1 PK ONE (17:03)
[2022-06-19 17:20] LABS: #Eosinphils 0.3 thou/uL (0.0-0.7); #Lymphocytes 2.2 thou/uL (1.20-3.40); #Monocytes 0.7 thou/uL (0.11-0.59); #Neutrophils 3.7 thou/uL (1.40-6.50); %Basophils 0.4 % (0.0-1.0); %Lymphocytes 31.8 % (21.0-51.0); %Monocytes 10.3 % (0.0-10.0); %Neutrophils 52.6 % (42.0-75.0); Hemoglobin 14.9 g/dL (14.0-18.0); Mean Corpuscular HGB CONC 31.3 g/dL (32.0-36.0); Mean Corpuscular Hemoglobin 28.2 pg (27.0-31.0); Mean Platelet Volume 9.5 fL (7.4-10.4); Platelet Count 192 thou/uL (130-400); RBC Distribution Width 13.8 % (11.5-14.5); Red Blood Cell (RBC) Count 5.29 mill/uL (4.70-6.10)
[2022-06-19 17:33] LABS: ALT (SGPT) 13 U/L (8-55); AST (SGOT) 12 U/L (5-34); Alkaline Phosphatase 90 U/L (40-110); Anion Gap 13 mmol/L (10-20); BUN (Urea Nitrogen) 15 mg/dL (8.4-25.7); Bilirubin, Total 0.3 mg/dL (0.2-1.2); Calc. Creatinine Clearance 0 mL/min (70-130); Carbon Dioxide 28 mmol/L (23-31); Chloride 100 mmol/L (98-107); Estimated GFR 67; Glucose 263 mg/dL (80-115); Potassium 3.3 mmol/L (3.5-5.1); Sodium 138 mmol/L (136-145)
[2022-06-19 17:52] LABS: CKMB 2.1 ng/mL (0-6.6)
[2022-06-19] MEDS ORDERED: hydrALAZINE 20 MG/ML VIAL SLOW IVP PRN (19:02)
[2022-06-19] MEDS ORDERED: Ondansetron PF 4 MG/2 ML Vial IVP PRN (19:02)
[2022-06-19] MEDS ORDERED: Cyclobenzaprine 10 MG TAB PO PRN (19:08)
[2022-06-19] MEDS ORDERED: traMADol HCl 50 MG TAB PO PRN (19:08)
[2022-06-19] MEDS ORDERED: Potassium Phosphate 30 MMOL in Sodium Chloride 0.9% 250 ML 250 ML IVPB SCH (19:15)
[2022-06-19 19:26] LABS: Magnesium 1.8 mg/dL (1.6-2.6)
[2022-06-19] MEDS ORDERED: Nicotine 14 MG PATCH TD SCH (20:00)
[2022-06-19 20:07] LABS: Acetaminophen Less than 10.0 mcg/mL (10.0-30.0); Alcohol Less than 10 mg/dL (Less than 10); Salicylate Less than 8.0 mg/dL (15.0-30.0)
[2022-06-19] MEDS ORDERED: Acetaminophen 500 MG TAB ONE (20:16)
[2022-06-19] MEDS ORDERED: Magnesium 2 GM/50 ML(in water) 2 GM in Premix Bag 1 BAG IVPB SCH (20:30)
[2022-06-19] MEDS ORDERED: HumaLOG 300 UNITS/3 ML VIAL SC PRN (20:46)
[2022-06-19] MEDS ORDERED: Dextrose 5% in Water 1,000 ML IV PRN (20:46)
[2022-06-19] MEDS ORDERED: Dextrose 50% Abboject 50 ML SYRINGE SLOW IVP PRN (20:46)
[2022-06-19] MEDS ORDERED: cloNIDine 0.1 MG TAB PO SCH (21:00)
[2022-06-19] MEDS ORDERED: Amlodipine 10 MG TAB PO SCH (21:00)
[2022-06-19] MEDS: Gabapentin 300 MG CAP PO SCH (21:51)
[2022-06-19] MEDS: Bacitracin 1 PK TOP SCH (21:51)
[2022-06-19] MEDS: Lisinopril 20 MG TAB PO SCH (21:52)
[2022-06-19] MEDS: Senokot S 8.6-50 MG TAB PO SCH (21:53)
[2022-06-19] MEDS: Famotidine 20 MG TAB PO SCH (21:53)
[2022-06-19] MEDS: Sodium Chloride 0.9% 1,000 ML IV SCH (21:53)
[2022-06-19 22:31] VITALS: BMI 28.6
[2022-06-19 22:49] LABS: Amphetamine Not Detected (NotDetected); Barbiturates Screen Not Detected (NotDetected); Benzodiazepine Screen Not Detected (NotDetected); Cocaine Metabolite Screen Detected (NotDetected); Methadone Not Detected (NotDetected); Methamphetamine Not Detected (NotDetected); Opiate Screen Not Detected (NotDetected); Oxycodone Screen Not Detected (NotDetected); Phencyclidine (PCP) Not Detected (NotDetected); THC/Cannabinoid Screen Not Detected (NotDetected); Tricyclic Screen Not Detected (NotDetected)
[2022-06-19] MEDS: Acetaminophen 500 MG TAB PO SCH (23:12)
[2022-06-19] MEDS: traMADol HCl 50 MG TAB PO SCH (23:16)
[2022-06-20] MEDS ORDERED: Insulin Glargine 30 UNITS/0.3 ML VIAL SC SCH (00:15)
[2022-06-20] MEDS: Sodium Chloride 0.9% 1,000 ML IV SCH (02:34)
[2022-06-20 04:45] LABS: #Basophils 0.1 thou/uL (0.0-0.2); #Eosinphils 0.4 thou/uL (0.0-0.7); #Lymphocytes 2.6 thou/uL (1.20-3.40); #Monocytes 0.8 thou/uL (0.11-0.59); #Neutrophils 3.8 thou/uL (1.40-6.50); %Eosinophils 5.8 % (0.0-10.0); %Lymphocytes 33.6 % (21.0-51.0); %Monocytes 9.9 % (0.0-10.0); %Neutrophils 49.7 % (42.0-75.0); Mean Corpuscular HGB CONC 32.6 g/dL (32.0-36.0); Mean Corpuscular Hemoglobin 29.3 pg (27.0-31.0); Mean Corpuscular Volume 89.8 fL (78.0-98.0); Mean Platelet Volume 9.5 fL (7.4-10.4); Platelet Count 179 thou/uL (130-400); RBC Distribution Width 13.8 % (11.5-14.5); Red Blood Cell (RBC) Count 4.78 mill/uL (4.70-6.10); White Blood Cell (WBC) Count 7.7 thou/uL (4.8-10.8)
[2022-06-20 05:04] LABS: Phosphorus 4.9 mg/dL (2.3-4.7)
[2022-06-20 05:14] LABS: Anion Gap 13 mmol/L (10-20); BUN (Urea Nitrogen) 18 mg/dL (8.4-25.7); Calc. Creatinine Clearance 62 mL/min (70-130); Calcium 8.8 mg/dL (7.8-10.44); Carbon Dioxide 25 mmol/L (23-31); Chloride 103 mmol/L (98-107); Estimated GFR 61; Glucose 264 mg/dL (80-115); Magnesium 2.2 mg/dL (1.6-2.6); Potassium 3.3 mmol/L (3.5-5.1); Sodium 138 mmol/L (136-145)
[2022-06-20] MEDS: Acetaminophen 500 MG TAB PO SCH ×2 (05:45→11:54)
[2022-06-20] MEDS: traMADol HCl 50 MG TAB PO SCH ×2 (05:45→11:55)
[2022-06-20 06:42] LABS: Troponin I 0.037 ng/mL (< 0.028)
[2022-06-20] MEDS: Gabapentin 300 MG CAP PO SCH (08:20)
[2022-06-20] MEDS: Lisinopril 20 MG TAB PO SCH (08:20)
[2022-06-20] MEDS: Senokot S 8.6-50 MG TAB PO SCH (08:21)
[2022-06-20] MEDS: Bacitracin 1 PK TOP SCH (08:21)
[2022-06-20] MEDS: Famotidine 20 MG TAB PO SCH (08:21)
[2022-06-20] MEDS ORDERED: Polyethylene Glycol 3350 17 GM Packet PO SCH (09:00)
[2022-06-20] MEDS ORDERED: Aspirin Chewable 81 MG TAB PO SCH (09:00)
[2022-06-20 12:28] VITALS: TEMP 97.3
[2022-06-20] MEDS ORDERED: hydrALAZINE 20 MG/ML VIAL SLOW IVP STA (12:47)
[2022-06-20] MEDS ORDERED: NIFEdipine XL 90 MG TAB PO SCH (13:15)
[2022-06-20] MEDS ORDERED: hydrALAZINE 20 MG/ML VIAL SLOW IVP SCH (13:15)
[2022-06-20 14:21] VITALS: BP 185/86
[2022-06-21] MEDS ORDERED: Insulin Glargine 30 UNITS/0.3 ML VIAL SC SCH (21:00)
== END 2022-06-20 14:45 | disposition home or self-care (01) ==
LOC: ERS 13:33 → 2SW 19:02
PROVIDERS: ADMIT Surgery; ATTEND Surgery
DX: S26.91XA Contusion of heart, unspecified with or without hemopericardium, initial encounter (principal); G89.11 Acute pain due to trauma; F14.129 Cocaine abuse with intoxication, unspecified; R77.8 Other specified abnormalities of plasma proteins; I13.0 Hypertensive heart and chronic kidney disease with heart failure and stage 1 through stage 4 chronic kidney disease, or unspecified chronic kidney disease; E11.22 Type 2 diabetes mellitus with diabetic chronic kidney disease; N18.9 Chronic kidney disease, unspecified; I50.30 Unspecified diastolic (congestive) heart failure; I25.10 Atherosclerotic heart disease of native coronary artery without angina pectoris; I25.2 Old myocardial infarction; F17.210 Nicotine dependence, cigarettes, uncomplicated; J32.8 Other chronic sinusitis; Z86.73 Personal history of transient ischemic attack (TIA), and cerebral infarction without residual deficits; Z79.82 Long term (current) use of aspirin; Z79.84 Long term (current) use of oral hypoglycemic drugs; Z79.899 Other long term (current) drug therapy; Z20.822 Contact with and (suspected) exposure to COVID-19; Y04.2XXA Assault by strike against or bumped into by another person, initial encounter; Y92.009 Unspecified place in unspecified non-institutional (private) residence as the place of occurrence of the external cause
CPT/HCPCS: 70450; 70486; 71045; 72125; 73090; 80048; 80053; 80306; 80307; 82553; 82962 ×2; 83735 ×2; 84100; 84484 ×2; 85025 ×2; 93005; 97139 ×2; 99285; U0003; U0005; 36415; 36416; 96374; 96375; 96376; G0378; J0360; J1815; J3475; J7050

== ENCOUNTER 2022-10-07 13:03 | Emergency (ER) | payer MEDICARE ==
[2022-10-07 14:22] LABS: #Basophils 0.1 thou/uL (0.0-0.2); #Eosinphils 0.1 thou/uL (0.0-0.7); #Lymphocytes 1.3 thou/uL (1.20-3.40); #Monocytes 0.6 thou/uL (0.11-0.59); #Neutrophils 5.9 thou/uL (1.40-6.50); %Eosinophils 1.5 % (0.0-10.0); %Lymphocytes 16.4 % (21.0-51.0); %Monocytes 7.9 % (0.0-10.0); %Neutrophils 73.2 % (42.0-75.0); Mean Corpuscular Volume 90.6 fl (78.0-98.0); Mean Platelet Volume 9.6 fL (7.4-10.4); Platelet Count 173 10x3/uL (130-400); RBC Distribution Width 14.1 % (11.5-14.5); Red Blood Cell (RBC) Count 5.52 mill/uL (4.70-6.10)
[2022-10-07 14:26] LABS: ALT (SGPT) 21 U/L (8-55); AST (SGOT) 25 U/L (5-34); Albumin 4.1 g/dL (3.4-4.8); Alkaline Phosphatase 101 U/L (40-110); Anion Gap 14 mmol/L (10-20); BUN (Urea Nitrogen) 22 mg/dL (8.4-25.7); Bilirubin, Total 0.4 mg/dL (0.2-1.2); Calc. Creatinine Clearance 0 mL/min (70-130); Calcium 8.7 mg/dL (7.8-10.44); Carbon Dioxide 28 mmol/L (23-31); Chloride 100 mmol/L (98-107); Estimated GFR 63; Globulin 3.2 g/dL (2.4-3.5); Glucose 248 mg/dL (80-115); Potassium 3.5 mmol/L (3.5-5.1); Protein, Total 7.3 g/dL (5.8-8.1); Sodium 138 mmol/L (136-145)
[2022-10-07 14:43] LABS: CKMB 2.2 ng/mL (0-6.6)
[2022-10-07] MEDS ORDERED: cloNIDine 0.1 MG TAB ONE (15:55)
[2022-10-07] MEDS ORDERED: LORazepam 2 MG/ML SYR.(CARPUJECT) ONE (16:16)
[2022-10-07] MEDS ORDERED: hydrALAZINE 20 MG/ML VIAL ONE (16:17)
[2022-10-07 16:33] LABS: SARS-CoV-2 NAA Rapid Test Not Detected (NotDetected)
== END 2022-10-07 17:46 | disposition home or self-care (01) ==
LOC: ERS 13:03
DX: R05.9 Cough, unspecified (principal); E11.9 Type 2 diabetes mellitus without complications; I10 Essential (primary) hypertension; F17.210 Nicotine dependence, cigarettes, uncomplicated; F14.129 Cocaine abuse with intoxication, unspecified; Z20.822 Contact with and (suspected) exposure to COVID-19
CPT/HCPCS: 0240U; 71045; 80053; 82553; 84484; 85025; 93005; 36415; 96374; 96375; J0360; J2060

== ENCOUNTER 2023-05-26 08:32 | Inpatient (IN) | payer MEDICARE ==
[2023-05-26] MEDS ORDERED: Aspirin 325 MG TAB ONE (09:15)
[2023-05-26] MEDS ORDERED: hydrALAZINE 20 MG/ML VIAL ONE (09:15)
[2023-05-26 09:28] LABS: #Basophils 0.1 thou/uL (0.0-0.2); #Eosinphils 0.5 thou/uL (0.0-0.7); #Monocytes 0.6 thou/uL (0.11-0.59); #Neutrophils 5.3 thou/uL (1.40-6.50); %Basophils 0.9 % (0.0-1.0); %Eosinophils 5.6 % (0.0-10.0); %Lymphocytes 20.3 % (21.0-51.0); %Monocytes 7.7 % (0.0-10.0); %Neutrophils 65.1 % (42.0-75.0); Hemoglobin 14.9 g/dL (14.0-18.0); Mean Corpuscular HGB CONC 33.3 g/dL (32.0-36.0); Mean Corpuscular Hemoglobin 28.8 pg (27.0-31.0); Mean Corpuscular Volume 86.5 fl (78.0-98.0); Mean Platelet Volume 10.6 fL (7.4-10.4); Platelet Count 195 10x3/uL (130-400); RBC Distribution Width 15.2 % (11.5-14.5); Red Blood Cell (RBC) Count 5.18 mill/uL (4.70-6.10); White Blood Cell (WBC) Count 8.2 10x3/uL (4.8-10.8)
[2023-05-26 09:53] LABS: ALT (SGPT) 48 U/L (8-55); AST (SGOT) 23 U/L (5-34); Albumin 3.9 g/dL (3.4-4.8); Alkaline Phosphatase 98 U/L (40-110); Anion Gap 11 mmol/L (10-20); BUN (Urea Nitrogen) 17 mg/dL (8.4-25.7); Bilirubin, Total 0.3 mg/dL (0.2-1.2); CK (CPK) 61 U/L (30-200); Calc. Creatinine Clearance 0 mL/min (70-130); Calcium 8.5 mg/dL (7.8-10.44); Carbon Dioxide 25 mmol/L (23-31); Chloride 105 mmol/L (98-107); Estimated GFR 89; Globulin 2.6 g/dL (2.4-3.5); Glucose 233 mg/dL (80-115); Lipase 30 U/L (8-78); Potassium 3.5 mmol/L (3.5-5.1); Protein, Total 6.5 g/dL (5.8-8.1); Sodium 137 mmol/L (136-145)
[2023-05-26] MEDS ORDERED: Furosemide 40 MG/4 ML VIAL ONE (10:12)
[2023-05-26 10:13] LABS: CKMB 2.5 ng/mL (0-6.6)
[2023-05-26] MEDS ORDERED: Nitroglycerin 0.4 MG TAB 1 EACH ONE (11:38)
[2023-05-26] MEDS ORDERED: Dextrose 50% Abboject 50 ML SYRINGE SLOW IVP PRN (11:45)
[2023-05-26] MEDS ORDERED: Dextrose 5% in Water 1,000 ML IV PRN (11:45)
[2023-05-26] MEDS ORDERED: Glucagon 1 MG/ML KIT IM PRN (11:45)
[2023-05-26 13:08] LABS: Troponin I 0.042 ng/mL (< 0.028)
[2023-05-26] MEDS ORDERED: Lisinopril 20 MG TAB PO SCH ×3 (14:00→21:00)
[2023-05-26] MEDS ORDERED: hydrALAZINE 25 MG TAB PO SCH ×2 (15:00→17:41)
[2023-05-26] MEDS ORDERED: Nitroglycerin 0.4 MG TAB (25 Tab Bottle) SL PRN (15:08)
[2023-05-26 15:58] LABS: Bacteria/HPF None Seen HPF (None Seen); Bilirubin Negative (Negative); Blood, Urine Negative (Negative); Clarity Clear (Clear); Glucose, Urine (Dipstick) Greater than 1000 mg/dL (Negative); Ketone, Urine Negative (Negative); Leukocyte Negative Leu/uL (Negative); Nitrite Negative (Negative); Protein, Urine (Dipstick) 10 mg/dL (Neg-Trace); RBC/HPF 0-3 HPF (0-3); Specific Gravity, Urine 1.011 (1.002-1.036); Squamous Epithelial None Seen HPF (0-3); Urobilinogen Normal mg/dL (Less than 2); WBC/HPF 0-3 HPF (0-3); pH, Urine 6.5 (5.0-9.0)
[2023-05-26 16:01] LABS: Amphetamine Not Detected (NotDetected); Barbiturates Screen Not Detected (NotDetected); Benzodiazepine Screen Not Detected (NotDetected); Cocaine Metabolite Screen Detected (NotDetected); Methadone Not Detected (NotDetected); Methamphetamine Not Detected (NotDetected); Opiate Screen Not Detected (NotDetected); Oxycodone Screen Not Detected (NotDetected); Phencyclidine (PCP) Not Detected (NotDetected); THC/Cannabinoid Screen Not Detected (NotDetected); Tricyclic Screen Not Detected (NotDetected)
[2023-05-26] MEDS: HYDROcodone/Acetaminophen 5/325 mg Tablet PO PRN (16:56)
[2023-05-26 17:39] LABS: Troponin I 0.055 ng/mL (< 0.028)
[2023-05-26] MEDS ORDERED: Amlodipine 10 MG TAB PO SCH (17:45)
[2023-05-26] MEDS ORDERED: niCARdipine 25 MG in Sodium Chloride 0.9% 250 ML 250 ML IVPB SCH ×2 (18:00→18:15)
[2023-05-26] MEDS: HumaLOG 300 UNITS/3 ML VIAL SC PRN (18:25)
[2023-05-26] MEDS ORDERED: Metoprolol Tartrate 25 MG TAB PO SCH (21:00)
[2023-05-26] MEDS: Atorvastatin Calcium 40 MG TAB PO SCH (21:05)
[2023-05-26] MEDS: Famotidine 20 MG TAB PO SCH (21:05)
[2023-05-26] MEDS: hydrALAZINE 25 MG TAB PO SCH (21:05)
[2023-05-26] MEDS ORDERED: HumaLOG 300 UNITS/3 ML VIAL SC SCH (21:30)
[2023-05-26] MEDS ORDERED: HumaLOG 300 UNITS/3 ML VIAL SC PRN (21:30)
[2023-05-27 03:43] LABS: #Basophils 0.1 thou/uL (0.0-0.2); #Eosinphils 0.5 thou/uL (0.0-0.7); #Monocytes 0.7 thou/uL (0.11-0.59); #Neutrophils 4.2 thou/uL (1.40-6.50); %Basophils 0.7 % (0.0-1.0); %Eosinophils 6.8 % (0.0-10.0); %Lymphocytes 28.3 % (21.0-51.0); %Monocytes 9.2 % (0.0-10.0); %Neutrophils 54.9 % (42.0-75.0); Hemoglobin 15.2 g/dL (14.0-18.0); Mean Corpuscular HGB CONC 32.9 g/dL (32.0-36.0); Mean Corpuscular Hemoglobin 28.8 pg (27.0-31.0); Mean Corpuscular Volume 87.7 fl (78.0-98.0); Mean Platelet Volume 11.3 fL (7.4-10.4); Platelet Count 200 10x3/uL (130-400); RBC Distribution Width 15.5 % (11.5-14.5); Red Blood Cell (RBC) Count 5.27 mill/uL (4.70-6.10); White Blood Cell (WBC) Count 7.6 10x3/uL (4.8-10.8)
[2023-05-27] MEDS: hydrALAZINE 20 MG/ML VIAL SLOW IVP PRN ×2 (03:55→23:15)
[2023-05-27 04:00] LABS: Hemoglobin A1c 8.6 % (4.0-6.0)
[2023-05-27 04:04] LABS: Anion Gap 13 mmol/L (10-20); BUN (Urea Nitrogen) 19 mg/dL (8.4-25.7); Calc. Creatinine Clearance 80 mL/min (70-130); Calcium 8.8 mg/dL (7.8-10.44); Carbon Dioxide 25 mmol/L (23-31); Chloride 104 mmol/L (98-107); Estimated GFR 84; Glucose 185 mg/dL (80-115); Potassium 3.2 mmol/L (3.5-5.1); Sodium 139 mmol/L (136-145)
[2023-05-27] MEDS: HumaLOG 300 UNITS/3 ML VIAL SC PRN ×3 (06:11→16:46)
[2023-05-27] MEDS: Aspirin 81 mg Enteric Coated Tablet PO SCH (07:26)
[2023-05-27] MEDS: hydrALAZINE 25 MG TAB PO SCH ×3 (07:27→20:24)
[2023-05-27] MEDS: Amlodipine 10 MG TAB PO SCH (07:27)
[2023-05-27] MEDS: Famotidine 20 MG TAB PO SCH ×2 (07:27→20:25)
[2023-05-27] MEDS: Lisinopril 20 MG TAB PO SCH (07:27)
[2023-05-27] MEDS: HYDROcodone/Acetaminophen 5/325 mg Tablet PO PRN ×2 (08:41→16:58)
[2023-05-27] MEDS ORDERED: Potassium Chloride 20 MEQ TAB PO SCH (08:45)
[2023-05-27] MEDS ORDERED: Lisinopril 20 MG TAB PO SCH (09:00)
[2023-05-27] MEDS ORDERED: Acetaminophen 325 MG TAB PO PRN (09:16)
[2023-05-27] MEDS ORDERED: Ondansetron PF 4 MG/2 ML Vial IVP PRN (09:17)
[2023-05-27 17:21] VITALS: BMI 29.1
[2023-05-27] MEDS: Atorvastatin Calcium 40 MG TAB PO SCH (20:25)
[2023-05-28] MEDS: hydrALAZINE 20 MG/ML VIAL SLOW IVP PRN (05:14)
[2023-05-28] MEDS: HumaLOG 300 UNITS/3 ML VIAL SC PRN ×2 (06:28→11:30)
[2023-05-28] MEDS: hydrALAZINE 25 MG TAB PO SCH ×3 (08:07→20:13)
[2023-05-28] MEDS: Lisinopril 20 MG TAB PO SCH (08:09)
[2023-05-28] MEDS: Famotidine 20 MG TAB PO SCH ×2 (08:09→20:13)
[2023-05-28] MEDS: Amlodipine 10 MG TAB PO SCH (08:09)
[2023-05-28] MEDS: Aspirin 81 mg Enteric Coated Tablet PO SCH (08:09)
[2023-05-28] MEDS ORDERED: hydrALAZINE 25 MG TAB PO SCH ×2 (09:00)
[2023-05-28] MEDS: Hydrochlorothiazide 25 MG TAB PO SCH (10:05)
[2023-05-28] MEDS: HYDROcodone/Acetaminophen 5/325 mg Tablet PO PRN (20:12)
[2023-05-28] MEDS: Atorvastatin Calcium 40 MG TAB PO SCH (20:13)
[2023-05-29 06:03] LABS: Anion Gap 13 mmol/L (10-20); BUN (Urea Nitrogen) 28 mg/dL (8.4-25.7); Calc. Creatinine Clearance 52 mL/min (70-130); Calcium 9.2 mg/dL (7.8-10.44); Carbon Dioxide 28 mmol/L (23-31); Chloride 102 mmol/L (98-107); Estimated GFR 50; Glucose 174 mg/dL (80-115); Sodium 139 mmol/L (136-145)
[2023-05-29] MEDS ORDERED: glipiZIDE 5 MG TAB PO SCH (07:30)
[2023-05-29 08:11] VITALS: BP 185/87; TEMP 97.6
[2023-05-29] MEDS ORDERED: Ibuprofen 200 MG TAB PO SCH (09:15)
[2023-05-29] MEDS: Famotidine 20 MG TAB PO SCH (09:28)
[2023-05-29] MEDS: Aspirin 81 mg Enteric Coated Tablet PO SCH (09:28)
[2023-05-29] MEDS: Amlodipine 10 MG TAB PO SCH (09:28)
[2023-05-29] MEDS: hydrALAZINE 25 MG TAB PO SCH (09:28)
[2023-05-29] MEDS: Lisinopril 20 MG TAB PO SCH (09:29)
[2023-05-29] MEDS: Hydrochlorothiazide 25 MG TAB PO SCH (09:29)
== END 2023-05-29 11:18 | disposition home or self-care (01) | DRG 281 ==
LOC: ERS 08:32 → ERHOLD 11:38 → 2SW 15:35 → CCU 18:54 → OBSVTOIN 21:13 → 2SW 05-28 11:56
PROVIDERS: ADMIT Internal Medicine; ATTEND Internal Medicine
DX: I16.1 Hypertensive emergency (principal); I21.A1 Myocardial infarction type 2; I50.32 Chronic diastolic (congestive) heart failure; I69.951 Hemiplegia and hemiparesis following unspecified cerebrovascular disease affecting right dominant side; I11.0 Hypertensive heart disease with heart failure; E11.65 Type 2 diabetes mellitus with hyperglycemia; F14.10 Cocaine abuse, uncomplicated; F17.210 Nicotine dependence, cigarettes, uncomplicated; E87.6 Hypokalemia; I25.2 Old myocardial infarction; Z98.890 Other specified postprocedural states; Z79.899 Other long term (current) drug therapy; Z79.4 Long term (current) use of insulin; Z79.82 Long term (current) use of aspirin; Z82.49 Family history of ischemic heart disease and other diseases of the circulatory system; E78.2 Mixed hyperlipidemia
CPT/HCPCS: 36415; 36416; 71045; 80048; 80053; 80306; 81001; 82550; 82553; 83036; 83690; 83880; 84484; 85025; 93005; 93306; 94760; 96374; 96375; G0378; J0360; J1650; J1815; J1940; J7050

== ENCOUNTER 2024-04-17 09:57 | Inpatient (IN) | payer MEDICARE, OTHER ==
[2024-04-17 10:29] LABS: #Basophils 0.06 10x3/uL (0.0-0.2); %Basophils 0.7 % (0.0-1.0); %Eosinophils 5.7 % (0.0-10.0); %Lymphocytes 16.3 % (21.0-51.0); %Monocytes 8.9 % (0.0-10.0); %Neutrophils 68.1 % (42.0-75.0); Hematocrit 42.7 % (42.0-52.0); Hemoglobin 14.3 g/dL (14.0-18.0); Mean Corpuscular HGB CONC 33.5 g/dL (32.0-36.0); Mean Corpuscular Hemoglobin 27.4 pg (27.0-31.0); Mean Platelet Volume 10.4 fL (7.4-10.4); Platelet Count 267 10x3/uL (130-400); RBC Distribution Width 14.9 % (11.5-14.5); Red Blood Cell (RBC) Count 5.21 mill/uL (4.70-6.10)
[2024-04-17] MEDS ORDERED: Aspirin Chewable 81 MG TAB ONE (10:32)
[2024-04-17 10:43] LABS: ALT (SGPT) 12 U/L (8-55); AST (SGOT) 16 U/L (5-34); Alkaline Phosphatase 130 U/L (40-110); Anion Gap 16 mmol/L (10-20); BUN (Urea Nitrogen) 16 mg/dL (8.4-25.7); Bilirubin, Total 0.3 mg/dL (0.2-1.2); Calc. Creatinine Clearance 0 mL/min (70-130); Calcium 8.8 mg/dL (7.8-10.44); Carbon Dioxide 22 mmol/L (23-31); Chloride 105 mmol/L (98-107); Estimated GFR 81; Globulin 3.8 g/dL (2.4-3.5); Glucose 303 mg/dL (80-115); Potassium 3.3 mmol/L (3.5-5.1); Protein, Total 6.8 g/dL (5.8-8.1); Sodium 140 mmol/L (136-145)
[2024-04-17 10:46] LABS: Prothrombin Time 12.7 sec (12.0-14.7)
[2024-04-17 10:47] LABS: PTT 31.9 sec (22.9-36.1)
[2024-04-17 10:49] LABS: Troponin I 0.078 ng/mL (< 0.028)
[2024-04-17] MEDS ORDERED: Iopamidol-370 76% 500 ML MDV (1 ML CHARGE) ONE (11:14)
[2024-04-17] MEDS ORDERED: Acetaminophen 325 MG TAB PO PRN (12:44)
[2024-04-17] MEDS ORDERED: Sodium Chloride 0.9% 1,000 ML IV SCH (12:45)
[2024-04-17] MEDS ORDERED: Electrolyte Replacement Protocol 1 EACH FS SCH (13:15)
[2024-04-17 13:18] LABS: Troponin I 0.071 ng/mL (< 0.028)
[2024-04-17 13:48] LABS: Bacteria/HPF None Seen HPF (None Seen); Bilirubin Negative (Negative); Blood, Urine Negative (Negative); CAUTI Indications for Culture Alt mental st,lethar; Clarity Clear (Clear); Glucose, Urine (Dipstick) 500 mg/dL (Negative); Ketone, Urine Negative (Negative); Leukocyte Negative Leu/uL (Negative); Nitrite Negative (Negative); Protein, Urine (Dipstick) 10 mg/dL (Neg-Trace); RBC/HPF 0-3 HPF (0-3); Specific Gravity, Urine 1.027 (1.002-1.036); Squamous Epithelial None Seen HPF (0-3); Urobilinogen Normal mg/dL (Less than 2); WBC/HPF 0-3 HPF (0-3)
[2024-04-17 13:49] LABS: Urine Culture Reflex No No
[2024-04-17 13:55] LABS: Amphetamine Not Detected (NotDetected); Barbiturates Screen Not Detected (NotDetected); Benzodiazepine Screen Not Detected (NotDetected); Cocaine Metabolite Screen Detected (NotDetected); Methadone Not Detected (NotDetected); Methamphetamine Not Detected (NotDetected); Opiate Screen Not Detected (NotDetected); Oxycodone Screen Not Detected (NotDetected); Phencyclidine (PCP) Not Detected (NotDetected); THC/Cannabinoid Screen Not Detected (NotDetected); Tricyclic Screen Not Detected (NotDetected)
[2024-04-17] MEDS ORDERED: Ipratropium/Albuterol 3 ML NEB NEB PRN (14:13)
[2024-04-17] MEDS: HYDROcodone/Acetaminophen 5/325 mg Tablet PO PRN (14:58)
[2024-04-17] MEDS: Ipratropium/Albuterol 3 ML NEB NEB SCH (16:38)
[2024-04-17] MEDS: Potassium Chloride 20 MEQ TAB PO SCH (16:48)
[2024-04-17] MEDS: hydrALAZINE 20 MG/ML VIAL SLOW IVP PRN (16:48)
[2024-04-17] MEDS ORDERED: Dextrose 5% in Water 1,000 ML IV PRN (17:35)
[2024-04-17] MEDS ORDERED: Dextrose 50% Abboject 50 ML SYRINGE SLOW IVP PRN (17:35)
[2024-04-17] MEDS ORDERED: Glucagon 1 MG/ML KIT IM PRN (17:35)
[2024-04-17] MEDS: HumaLOG 300 UNITS/3 ML VIAL SC PRN (17:44)
[2024-04-17] MEDS: Furosemide 40 MG (4 mL) VIAL SLOW IVP SCH (17:44)
[2024-04-17] MEDS: Clindamycin/D5W 900 MG in Premix 1 BAG IVPB SCH (18:32)
[2024-04-17] MEDS: Cefepime 1 GM in Sodium Chloride 0.9% 100 ML IVPB SCH (20:22)
[2024-04-17] MEDS: Atorvastatin Calcium 40 MG TAB PO SCH (20:22)
[2024-04-18] MEDS: Labetalol HCl 100 MG/20 ML VIAL SLOW IVP PRN (00:38)
[2024-04-18 06:41] LABS: #Basophils 0.07 10x3/uL (0.0-0.2); %Basophils 0.7 % (0.0-1.0); %Eosinophils 6.4 % (0.0-10.0); %Lymphocytes 18.4 % (21.0-51.0); %Monocytes 9.7 % (0.0-10.0); %Neutrophils 64.5 % (42.0-75.0); Hematocrit 42.2 % (42.0-52.0); Hemoglobin 13.5 g/dL (14.0-18.0); Mean Corpuscular Hemoglobin 27.6 pg (27.0-31.0); Mean Corpuscular Volume 86.3 fL (78.0-98.0); Platelet Count 281 10x3/uL (130-400); RBC Distribution Width 15.3 % (11.5-14.5); Red Blood Cell (RBC) Count 4.89 mill/uL (4.70-6.10)
[2024-04-18 07:09] LABS: ALT (SGPT) 11 U/L (8-55); AST (SGOT) 11 U/L (5-34); Albumin 3.2 g/dL (3.4-4.8); Alkaline Phosphatase 92 U/L (40-110); Anion Gap 18 mmol/L (10-20); BUN (Urea Nitrogen) 19 mg/dL (8.4-25.7); Bilirubin, Total 0.4 mg/dL (0.2-1.2); Calc. Creatinine Clearance 57 mL/min (70-130); Calcium 9.2 mg/dL (7.8-10.44); Carbon Dioxide 26 mmol/L (23-31); Cardiac Risk 4.3 (Less than 4.5); Chloride 103 mmol/L (98-107); Cholesterol 201 mg/dl (< 200 Desired); Estimated GFR 63; Glucose 158 mg/dL (80-115); HDL Cholesterol 47 mg/dL (>60 Neg Risk); LDL Cholesterol, Calculated 138 mg/dL; Potassium 3.5 mmol/L (3.5-5.1); Protein, Total 6.2 g/dL (5.8-8.1); Sodium 143 mmol/L (136-145); Triglycerides 82 mg/dL (Less than 150)
[2024-04-18 07:59] LABS: Hemoglobin A1c 8.7 % (4.0-6.0)
[2024-04-18] MEDS: Aspirin 81 mg Enteric Coated Tablet PO SCH (08:08)
[2024-04-18] MEDS: Potassium Chloride 20 MEQ TAB PO SCH (08:08)
[2024-04-18] MEDS ORDERED: Enoxaparin 40 MG (0.4 mL) SYRINGE SC SCH (09:00)
[2024-04-18] MEDS ORDERED: Aspirin 81 mg Enteric Coated Tablet PO SCH (09:00)
[2024-04-18] MEDS: Zolpidem Tartrate 5 MG TAB PO PRN (20:11)
[2024-04-18 23:38] VITALS: BMI 25.9
[2024-04-19 07:18] LABS: ALT (SGPT) 8 U/L (8-55); AST (SGOT) 8 U/L (5-34); Albumin 2.9 g/dL (3.4-4.8); Alkaline Phosphatase 80 U/L (40-110); Anion Gap 14 mmol/L (10-20); BUN (Urea Nitrogen) 18 mg/dL (8.4-25.7); Bilirubin, Total 0.4 mg/dL (0.2-1.2); Calc. Creatinine Clearance 58 mL/min (70-130); Calcium 9.1 mg/dL (7.8-10.44); Carbon Dioxide 26 mmol/L (23-31); Chloride 105 mmol/L (98-107); Estimated GFR 65; Globulin 3.5 g/dL (2.4-3.5); Glucose 180 mg/dL (80-115); Potassium 3.7 mmol/L (3.5-5.1); Protein, Total 6.4 g/dL (5.8-8.1); Sodium 141 mmol/L (136-145)
[2024-04-19 07:47] LABS: #Basophils 0.05 10x3/uL (0.0-0.2); %Basophils 0.5 % (0.0-1.0); %Eosinophils 5.2 % (0.0-10.0); %Lymphocytes 18.9 % (21.0-51.0); %Monocytes 9.5 % (0.0-10.0); %Neutrophils 65.6 % (42.0-75.0); Hematocrit 41.1 % (42.0-52.0); Hemoglobin 13.1 g/dL (14.0-18.0); Mean Corpuscular HGB CONC 31.9 g/dL (32.0-36.0); Mean Corpuscular Hemoglobin 27.7 pg (27.0-31.0); Mean Corpuscular Volume 86.9 fL (78.0-98.0); Mean Platelet Volume 11.2 fL (7.4-10.4); Platelet Count 259 10x3/uL (130-400); RBC Distribution Width 15.4 % (11.5-14.5); Red Blood Cell (RBC) Count 4.73 mill/uL (4.70-6.10)
[2024-04-19] MEDS: glipiZIDE 5 MG TAB PO SCH (09:20)
[2024-04-20] MEDS: Albuterol 2.5 MG (3 mL) NEB NEB PRN (08:01)
[2024-04-20] MEDS: NIFEdipine XL 60 MG ER.TAB PO SCH (12:40)
[2024-04-20] MEDS: Furosemide 40 MG TAB PO SCH (12:40)
[2024-04-20 12:48] VITALS: TEMP 97.5
[2024-04-20 17:01] VITALS: BP 146/68
== END 2024-04-20 16:15 | disposition home or self-care (01) | DRG 64 ==
LOC: ERS 09:57 → 2SE 13:44
PROVIDERS: ADMIT Family Medicine; ATTEND Internal Medicine
DX: I63.9 Cerebral infarction, unspecified (principal); I61.9 Nontraumatic intracerebral hemorrhage, unspecified; I10 Essential (primary) hypertension; K04.7 Periapical abscess without sinus; R26.9 Unspecified abnormalities of gait and mobility; E87.6 Hypokalemia; R79.89 Other specified abnormal findings of blood chemistry; F41.9 Anxiety disorder, unspecified; R22.2 Localized swelling, mass and lump, trunk; R47.81 Slurred speech; F17.210 Nicotine dependence, cigarettes, uncomplicated; R29.706 NIHSS score 6; E11.9 Type 2 diabetes mellitus without complications; E88.09 Other disorders of plasma-protein metabolism, not elsewhere classified; F14.10 Cocaine abuse, uncomplicated; R23.3 Spontaneous ecchymoses; Z85.528 Personal history of other malignant neoplasm of kidney; Z98.890 Other specified postprocedural states; Z79.82 Long term (current) use of aspirin; Z79.84 Long term (current) use of oral hypoglycemic drugs; Z79.899 Other long term (current) drug therapy
CPT/HCPCS: 0042T; 36415; 36416; 70450; 70496; 70498; 70551; 71045; 71260; 74177; 80053; 80061; 80306; 81001; 83036; 83615; 83880; 84443; 84484; 84550; 85025; 85610; 85730; 86141; 93005; 93306; 94640; 94760; J0360; J0692; J1815; J1940; J3490; J7611; Q9967

== ENCOUNTER 2024-05-18 09:30 | Outpatient (CLI) | payer OTHER | END 2024-05-18 09:31 | disposition home or self-care (01) | LOC: PET 09:30 | PROVIDERS: ATTEND Student in an Organized Health Care Education/Training Program | DX: R59.0 Localized enlarged lymph nodes (principal); C77.1 Secondary and unspecified malignant neoplasm of intrathoracic lymph nodes; C80.1 Malignant (primary) neoplasm, unspecified | CPT/HCPCS: 78815; A9552 ==

== ENCOUNTER 2024-07-26 13:44 | Observation (INO) | payer OTHER ==
[~2024-07-26 13:44] MED LIST changes: -ISOVUE-370 76%-LOCM 1 ML ONE; +Iopamidol-370 76% 500 ML MDV (1 ML CHARGE) ONE
[2024-07-26 14:58] LABS: #Basophils 0.06 10x3/uL (0.0-0.2); %Basophils 0.7 % (0.0-1.0); %Lymphocytes 21.6 % (21.0-51.0); %Monocytes 9.1 % (0.0-10.0); %Neutrophils 64.4 % (42.0-75.0); Hematocrit 39.8 % (42.0-52.0); Hemoglobin 13.3 g/dL (14.0-18.0); Mean Corpuscular HGB CONC 33.4 g/dL (32.0-36.0); Mean Corpuscular Volume 80.7 fL (78.0-98.0); Mean Platelet Volume 10.2 fL (7.4-10.4); Platelet Count 249 10x3/uL (130-400); RBC Distribution Width 15.5 % (11.5-14.5); Red Blood Cell (RBC) Count 4.93 mill/uL (4.70-6.10)
[2024-07-26 15:17] LABS: ALT (SGPT) 12 U/L (8-55); AST (SGOT) 13 U/L (5-34); Albumin 3.6 g/dL (3.4-4.8); Alkaline Phosphatase 100 U/L (40-110); Anion Gap 12 mmol/L (10-20); BUN (Urea Nitrogen) 30 mg/dL (8.4-25.7); Bilirubin, Total 0.3 mg/dL (0.2-1.2); Calc. Creatinine Clearance 0 mL/min (70-130); Calcium 9.7 mg/dL (7.8-10.44); Carbon Dioxide 30 mmol/L (23-31); Chloride 101 mmol/L (98-107); Estimated GFR 62; Globulin 3.9 g/dL (2.4-3.5); Glucose 99 mg/dL (80-115); Potassium 3.5 mmol/L (3.5-5.1); Protein, Total 7.5 g/dL (5.8-8.1); Sodium 139 mmol/L (136-145)
[2024-07-26 15:20] LABS: Troponin I 0.034 ng/mL (< 0.028)
[2024-07-26] MEDS ORDERED: Nitroglycerin 2% Ointment 1 INCH/1 GM Packet ONE (17:26)
[2024-07-26] MEDS ORDERED: Ondansetron ODT 4 MG TAB PO PRN (18:42)
[2024-07-26] MEDS ORDERED: Nitroglycerin 0.4 MG TAB (25 Tab Bottle) SL PRN (18:42)
[2024-07-26] MEDS ORDERED: Acetaminophen 650 MG Suppository PR PRN (18:42)
[2024-07-26] MEDS ORDERED: Glucagon 1 MG/ML KIT IM PRN (18:49)
[2024-07-26] MEDS ORDERED: Dextrose 5% in Water 1,000 ML IV PRN (18:49)
[2024-07-26] MEDS ORDERED: Dextrose 50% Abboject 50 ML SYRINGE SLOW IVP PRN (18:49)
[2024-07-26] MEDS ORDERED: Insulin Lispro 100 UNIT/ML 10 ML VIAL SC PRN (18:49)
[2024-07-26 19:58] LABS: Troponin I 0.027 ng/mL (< 0.028)
[2024-07-27 00:13] LABS: Troponin I 0.021 ng/mL (< 0.028)
[2024-07-27] MEDS ORDERED: Atorvastatin Calcium 40 MG TAB ONE (00:36)
[2024-07-27] MEDS ORDERED: Famotidine 20 MG TAB ONE ×2 (00:36→10:05)
[2024-07-27] MEDS ORDERED: Ondansetron PF 4 MG/2 ML Vial ONE (00:44)
[2024-07-27] MEDS: Atorvastatin Calcium 40 MG TAB PO SCH (00:46)
[2024-07-27] MEDS: Ondansetron PF 4 MG/2 ML Vial IVP PRN (00:47)
[2024-07-27] MEDS: Famotidine 20 MG TAB PO SCH (00:47)
[2024-07-27 04:04] VITALS: BMI 29.2
[2024-07-27 04:27] LABS: #Basophils 0.08 10x3/uL (0.0-0.2); %Eosinophils 4.6 % (0.0-10.0); %Lymphocytes 24.8 % (21.0-51.0); %Monocytes 9.4 % (0.0-10.0); %Neutrophils 59.9 % (42.0-75.0); Hematocrit 38.6 % (42.0-52.0); Hemoglobin 12.5 g/dL (14.0-18.0); Mean Corpuscular HGB CONC 32.4 g/dL (32.0-36.0); Mean Corpuscular Hemoglobin 27.2 pg (27.0-31.0); Mean Corpuscular Volume 83.9 fL (78.0-98.0); Mean Platelet Volume 10.1 fL (7.4-10.4); Platelet Count 236 10x3/uL (130-400); RBC Distribution Width 15.8 % (11.5-14.5)
[2024-07-27 04:42] LABS: Hemoglobin A1c 7.2 % (4.0-6.0)
[2024-07-27 04:48] LABS: Anion Gap 13 mmol/L (10-20); BUN (Urea Nitrogen) 29 mg/dL (8.4-25.7); Calc. Creatinine Clearance 70 mL/min (70-130); Carbon Dioxide 26 mmol/L (23-31); Cardiac Risk 4.4 (Less than 4.5); Chloride 104 mmol/L (98-107); Cholesterol 174 mg/dl (< 200 Desired); Estimated GFR 71; Glucose 106 mg/dL (80-115); HDL Cholesterol 40 mg/dL (>60 Neg Risk); LDL Cholesterol, Calculated 112 mg/dL; Potassium 3.9 mmol/L (3.5-5.1); Sodium 139 mmol/L (136-145); Triglycerides 111 mg/dL (Less than 150)
[2024-07-27 08:48] VITALS: TEMP 98.1
[2024-07-27] MEDS ORDERED: Aspirin 81 mg Enteric Coated Tablet ONE (10:05)
[2024-07-27] MEDS ORDERED: Enoxaparin 40 MG (0.4 mL) SYRINGE ONE (10:05)
[2024-07-27] MEDS ORDERED: Acetaminophen 325 MG TAB ONE (10:09)
[2024-07-27] MEDS: Aspirin 81 mg Enteric Coated Tablet PO SCH (10:10)
[2024-07-27] MEDS: Acetaminophen 325 MG TAB PO PRN (10:11)
[2024-07-27] MEDS: Enoxaparin 40 MG (0.4 mL) SYRINGE SC SCH (10:11)
[2024-07-27] MEDS ORDERED: Regadenoson 0.4 MG/5 ML SYRINGE ONE (11:28)
[2024-07-27 16:01] VITALS: BP 181/80
== END 2024-07-27 16:02 | disposition home or self-care (01) ==
LOC: ERS 13:44 → SUATTDRO 13:44 → ERHOLD 18:42
PROVIDERS: ADMIT Family Medicine; ATTEND Internal Medicine
DX: R07.9 Chest pain, unspecified (principal); E11.9 Type 2 diabetes mellitus without complications; I10 Essential (primary) hypertension; C64.9 Malignant neoplasm of unspecified kidney, except renal pelvis; F41.9 Anxiety disorder, unspecified; I25.2 Old myocardial infarction; Z86.73 Personal history of transient ischemic attack (TIA), and cerebral infarction without residual deficits; Z79.84 Long term (current) use of oral hypoglycemic drugs; Z79.82 Long term (current) use of aspirin; Z79.899 Other long term (current) drug therapy
CPT/HCPCS: 71045; 71275; 78452; 80048; 80053; 80061; 83036; 83690; 83880; 84443; 84484 ×2; 85025 ×2; 93005; 93017; 94760; 96372; 96374; A9502; G0378 ×2; J1650; J2405; J2785 ×2; Q9967; 36415

== ENCOUNTER 2024-08-15 10:19 | Observation (INO) | payer OTHER ==
[2024-08-15 10:59] LABS: #Basophils 0.08 10x3/uL (0.0-0.2); %Basophils 0.9 % (0.0-1.0); %Eosinophils 2.6 % (0.0-10.0); %Lymphocytes 20.4 % (21.0-51.0); %Monocytes 8.3 % (0.0-10.0); %Neutrophils 67.4 % (42.0-75.0); Hematocrit 44.8 % (42.0-52.0); Hemoglobin 14.2 g/dL (14.0-18.0); Mean Corpuscular HGB CONC 31.7 g/dL (32.0-36.0); Mean Corpuscular Hemoglobin 27.2 pg (27.0-31.0); Mean Corpuscular Volume 85.8 fL (78.0-98.0); Mean Platelet Volume 10.2 fL (7.4-10.4); Platelet Count 278 10x3/uL (130-400); RBC Distribution Width 16.4 % (11.5-14.5); Red Blood Cell (RBC) Count 5.22 mill/uL (4.70-6.10)
[2024-08-15 11:14] LABS: PTT 32.2 sec (22.9-36.1); Prothrombin Time 13.1 sec (12.0-14.7)
[2024-08-15 11:21] LABS: ALT (SGPT) 11 U/L (8-55); AST (SGOT) 13 U/L (5-34); Albumin 3.6 g/dL (3.4-4.8); Alkaline Phosphatase 86 U/L (40-110); Anion Gap 15 mmol/L (10-20); BUN (Urea Nitrogen) 34 mg/dL (8.4-25.7); Bilirubin, Total 0.3 mg/dL (0.2-1.2); Calc. Creatinine Clearance 0 mL/min (70-130); Calcium 9.4 mg/dL (7.8-10.44); Carbon Dioxide 25 mmol/L (23-31); Chloride 104 mmol/L (98-107); Estimated GFR 46; Glucose 143 mg/dL (80-115); Potassium 3.5 mmol/L (3.5-5.1); Protein, Total 7.6 g/dL (5.8-8.1); Sodium 140 mmol/L (136-145)
[2024-08-15 11:24] LABS: Troponin I 0.047 ng/mL (< 0.028)
[2024-08-15] MEDS ORDERED: Ketorolac Tromethamine 30 MG (1 mL) VIAL ONE (11:56)
[2024-08-15] MEDS ORDERED: Nitroglycerin 2% Ointment 1 INCH/1 GM Packet ONE (11:56)
[2024-08-15] MEDS ORDERED: Famotidine/PF 20 mg/2ml Vial ONE (11:56)
[2024-08-15] MEDS ORDERED: Enoxaparin 80 MG (0.8 mL) SYRINGE ONE (12:42)
[2024-08-15 14:01] VITALS: BMI 28.7
[2024-08-15 15:03] LABS: Troponin I 0.028 ng/mL (< 0.028)
[2024-08-15] MEDS: Aspirin 325 MG TAB PO SCH (15:42)
[2024-08-15 16:57] LABS: Amphetamine Not Detected (NotDetected); Barbiturates Screen Not Detected (NotDetected); Benzodiazepine Screen Not Detected (NotDetected); Cocaine Metabolite Screen Detected (NotDetected); Methadone Not Detected (NotDetected); Methamphetamine Not Detected (NotDetected); Opiate Screen Not Detected (NotDetected); Oxycodone Screen Not Detected (NotDetected); Phencyclidine (PCP) Not Detected (NotDetected); THC/Cannabinoid Screen Not Detected (NotDetected); Tricyclic Screen Not Detected (NotDetected)
[2024-08-15 17:58] LABS: Troponin I 0.034 ng/mL (< 0.028)
[2024-08-15] MEDS: Atorvastatin Calcium 40 MG TAB PO SCH (20:25)
[2024-08-15] MEDS: Enoxaparin 80 MG (0.8 mL) SYRINGE SC SCH (20:25)
[2024-08-15] MEDS: Nitroglycerin 0.4 MG TAB (25 Tab Bottle) SL PRN (20:26)
[2024-08-15] MEDS ORDERED: Famotidine 20 MG TAB PO SCH (21:00)
[2024-08-16 04:28] LABS: #Basophils 0.06 10x3/uL (0.0-0.2); %Basophils 0.8 % (0.0-1.0); %Eosinophils 3.9 % (0.0-10.0); %Lymphocytes 29.8 % (21.0-51.0); %Monocytes 10.7 % (0.0-10.0); %Neutrophils 54.5 % (42.0-75.0); Hematocrit 36.9 % (42.0-52.0); Hemoglobin 11.9 g/dL (14.0-18.0); Mean Corpuscular HGB CONC 32.2 g/dL (32.0-36.0); Mean Corpuscular Hemoglobin 27.2 pg (27.0-31.0); Mean Corpuscular Volume 84.2 fL (78.0-98.0); Mean Platelet Volume 10.7 fL (7.4-10.4); Platelet Count 241 10x3/uL (130-400); RBC Distribution Width 16.5 % (11.5-14.5); Red Blood Cell (RBC) Count 4.38 mill/uL (4.70-6.10)
[2024-08-16 04:43] LABS: Anion Gap 11 mmol/L (10-20); BUN (Urea Nitrogen) 34 mg/dL (8.4-25.7); Calc. Creatinine Clearance 43 mL/min (70-130); Calcium 8.9 mg/dL (7.8-10.44); Carbon Dioxide 29 mmol/L (23-31); Chloride 104 mmol/L (98-107); Estimated GFR 40; Glucose 213 mg/dL (80-115); Potassium 3.4 mmol/L (3.5-5.1); Sodium 141 mmol/L (136-145)
[2024-08-16] MEDS: NIFEdipine XL 60 MG ER.TAB PO SCH (08:04)
[2024-08-16] MEDS: Isosorbide Mononitrate 30 MG ER.TAB PO SCH (08:04)
[2024-08-16] MEDS: glipiZIDE 5 MG TAB PO SCH (08:05)
[2024-08-16] MEDS: Aspirin Chewable 81 MG TAB PO SCH (08:05)
[2024-08-16] MEDS: Potassium Chloride 20 MEQ TAB PO SCH (10:38)
[2024-08-16] MEDS ORDERED: Fioricet 325/50/40 mg Tablet PO PRN (11:53)
[2024-08-16] MEDS: Acetaminophen 325 MG TAB PO PRN (12:59)
[2024-08-16 15:02] VITALS: BP 169/77; TEMP 97.7
[2024-08-16] MEDS ORDERED: Famotidine 20 MG TAB PO SCH (21:00)
== END 2024-08-16 15:47 | disposition home or self-care (01) ==
LOC: ERS 10:19 → 2SW 13:55 → OBS 08-16 10:03
PROVIDERS: ADMIT Internal Medicine; ATTEND Internal Medicine
DX: I20.9 Angina pectoris, unspecified (principal); I13.0 Hypertensive heart and chronic kidney disease with heart failure and stage 1 through stage 4 chronic kidney disease, or unspecified chronic kidney disease; I50.9 Heart failure, unspecified; N18.30 Chronic kidney disease, stage 3 unspecified; E11.22 Type 2 diabetes mellitus with diabetic chronic kidney disease; F17.210 Nicotine dependence, cigarettes, uncomplicated; N17.9 Acute kidney failure, unspecified; F14.20 Cocaine dependence, uncomplicated; Z86.73 Personal history of transient ischemic attack (TIA), and cerebral infarction without residual deficits; Z85.528 Personal history of other malignant neoplasm of kidney; Z98.890 Other specified postprocedural states; Z79.899 Other long term (current) drug therapy; Z79.84 Long term (current) use of oral hypoglycemic drugs; Z79.82 Long term (current) use of aspirin
CPT/HCPCS: 71045; 80048; 80053; 80306; 82962 ×2; 84484 ×2; 85025 ×2; 85610; 85730; 93005; 96372 ×3; 96374; 96375; 99285; G0378 ×3; J1650 ×2; J1885; J3490; 36415; 36416

== ENCOUNTER 2024-09-11 07:29 | Emergency (ER) | payer OTHER ==
[2024-09-11] MEDS ORDERED: HYDROcodone/Acetaminophen 5/325 mg Tablet ONE (08:40)
== END 2024-09-11 09:00 | disposition home or self-care (01) ==
LOC: ERS 07:29
DX: K08.89 Other specified disorders of teeth and supporting structures (principal); K02.9 Dental caries, unspecified; I12.9 Hypertensive chronic kidney disease with stage 1 through stage 4 chronic kidney disease, or unspecified chronic kidney disease; E11.22 Type 2 diabetes mellitus with diabetic chronic kidney disease; N18.9 Chronic kidney disease, unspecified; F17.210 Nicotine dependence, cigarettes, uncomplicated; I25.2 Old myocardial infarction; I25.10 Atherosclerotic heart disease of native coronary artery without angina pectoris; Z86.73 Personal history of transient ischemic attack (TIA), and cerebral infarction without residual deficits; Z79.82 Long term (current) use of aspirin; Z79.84 Long term (current) use of oral hypoglycemic drugs; Z79.899 Other long term (current) drug therapy
CPT/HCPCS: 99282

== ENCOUNTER 2024-12-08 10:20 | Inpatient (IN) | payer OTHER ==
[2024-12-08 11:06] LABS: Bacteria/HPF None Seen HPF (None Seen); Bilirubin Negative (Negative); Blood, Urine Negative (Negative); CAUTI Indications for Culture Pelvic or flank pain; Clarity Clear (Clear); Glucose, Urine (Dipstick) 300 mg/dL (Negative); Ketone, Urine Negative (Negative); Leukocyte Negative Leu/uL (Negative); Nitrite Negative (Negative); Protein, Urine (Dipstick) 20 mg/dL (Neg-Trace); RBC/HPF None Seen HPF (0-3); Specific Gravity, Urine 1.011 (1.002-1.036); Squamous Epithelial None Seen HPF (0-3); Urobilinogen Normal mg/dL (Less than 2); WBC/HPF None Seen HPF (0-3); pH, Urine 6.5 (5.0-9.0)
[2024-12-08 11:13] LABS: #Basophils 0.12 10x3/uL (0.0-0.2); %Basophils 1.4 % (0.0-1.0); %Eosinophils 10.6 % (0.0-10.0); %Lymphocytes 19.1 % (21.0-51.0); %Monocytes 9.1 % (0.0-10.0); %Neutrophils 59.6 % (42.0-75.0); Hematocrit 46.5 % (42.0-52.0); Hemoglobin 15.4 g/dL (14.0-18.0); Mean Corpuscular HGB CONC 33.1 g/dL (32.0-36.0); Mean Corpuscular Hemoglobin 27.8 pg (27.0-31.0); Mean Corpuscular Volume 83.9 fL (78.0-98.0); Mean Platelet Volume 10.5 fL (7.4-10.4); Platelet Count 236 10x3/uL (130-400); RBC Distribution Width 15.4 % (11.5-14.5); Red Blood Cell (RBC) Count 5.54 mill/uL (4.70-6.10)
[2024-12-08 11:14] LABS: Urine Culture Reflex No No
[2024-12-08 11:29] LABS: Anion Gap 13 mmol/L (10-20); BUN (Urea Nitrogen) 22 mg/dL (8.4-25.7); Calc. Creatinine Clearance 0 mL/min (70-130); Carbon Dioxide 25 mmol/L (23-31); Chloride 102 mmol/L (98-107); Estimated GFR 72; Glucose 197 mg/dL (80-115); Potassium 3.8 mmol/L (3.5-5.1); Sodium 136 mmol/L (136-145)
[2024-12-08 12:35] LABS: INR-International Normal Ratio 0.9; PTT 29.7 sec (22.9-36.1); Prothrombin Time 12.5 sec (12.0-14.7)
[2024-12-08 12:44] LABS: Troponin I 0.037 ng/mL (< 0.028)
[2024-12-08] MEDS ORDERED: Morphine 4 MG/ML VIAL ONE (13:45)
[2024-12-08] MEDS ORDERED: Aspirin Chewable 81 MG TAB ONE (13:47)
[2024-12-08 14:39] LABS: Troponin I 0.035 ng/mL (< 0.028)
[2024-12-08] MEDS ORDERED: Ondansetron ODT 4 MG TAB PO PRN (15:10)
[2024-12-08] MEDS ORDERED: Acetaminophen 650 MG Suppository PR PRN (15:10)
[2024-12-08] MEDS ORDERED: Ondansetron PF 4 MG/2 ML Vial IVP PRN (15:10)
[2024-12-08] MEDS ORDERED: Glucagon 1 MG/ML KIT IM PRN (15:12)
[2024-12-08] MEDS ORDERED: Dextrose 5% in Water 1,000 ML IV PRN (15:12)
[2024-12-08] MEDS ORDERED: Insulin Lispro 100 UNIT/ML 10 ML VIAL SC PRN (15:12)
[2024-12-08] MEDS ORDERED: Dextrose 50% Abboject 50 ML SYRINGE SLOW IVP PRN (15:12)
[2024-12-08 18:52] LABS: Troponin I 0.045 ng/mL (< 0.028)
[2024-12-08 20:15] VITALS: BMI 28.3
[2024-12-08] MEDS: Famotidine 20 MG TAB PO SCH (20:59)
[2024-12-08] MEDS: Atorvastatin Calcium 40 MG TAB PO SCH (20:59)
[2024-12-09 00:31] LABS: Troponin I 0.057 ng/mL (< 0.028)
[2024-12-09 04:48] LABS: %Basophils 1.2 % (0.0-1.0); %Eosinophils 11.1 % (0.0-10.0); %Lymphocytes 23.8 % (21.0-51.0); %Monocytes 10.6 % (0.0-10.0); %Neutrophils 53.1 % (42.0-75.0); Hematocrit 41.4 % (42.0-52.0); Hemoglobin 13.4 g/dL (14.0-18.0); Mean Corpuscular HGB CONC 32.4 g/dL (32.0-36.0); Mean Corpuscular Hemoglobin 27.6 pg (27.0-31.0); Mean Corpuscular Volume 85.2 fL (78.0-98.0); Platelet Count 217 10x3/uL (130-400); RBC Distribution Width 15.5 % (11.5-14.5); Red Blood Cell (RBC) Count 4.86 mill/uL (4.70-6.10)
[2024-12-09 05:10] LABS: ALT (SGPT) 17 U/L (Less than 45); AST (SGOT) 14 U/L (11-34); Albumin 3.4 g/dL (3.1-4.5); Alkaline Phosphatase 77 U/L (40-110); Anion Gap 13 mmol/L (10-20); BUN (Urea Nitrogen) 22 mg/dL (8.4-25.7); Bilirubin, Total 0.3 mg/dL (0.3-1.2); Calc. Creatinine Clearance 58 mL/min (70-130); Calcium 8.8 mg/dL (7.8-10.44); Carbon Dioxide 28 mmol/L (23-31); Cardiac Risk 6.2 (Less than 4.5); Chloride 102 mmol/L (98-107); Cholesterol 262 mg/dl (< 200 Desired); Estimated GFR 59; Glucose 105 mg/dL (80-115); HDL Cholesterol 42 mg/dL (>60 Neg Risk); LDL Cholesterol, Calculated 169 mg/dL; Potassium 3.7 mmol/L (3.5-5.1); Protein, Total 6.4 g/dL (5.8-8.1); Sodium 139 mmol/L (136-145); Triglycerides 254 mg/dL (Less than 150)
[2024-12-09] MEDS: Aspirin 81 mg Enteric Coated Tablet PO SCH (10:01)
[2024-12-09] MEDS: Docusate 100 MG CAP PO SCH (10:02)
[2024-12-09] MEDS: Enoxaparin 40 MG (0.4 mL) SYRINGE SC SCH (10:02)
[2024-12-09] MEDS: Acetaminophen 325 MG TAB PO PRN (10:02)
[2024-12-09] MEDS: Lisinopril 10 MG TAB PO SCH (14:51)
[2024-12-09] MEDS: hydrALAZINE 20 MG/ML VIAL SLOW IVP PRN (16:40)
[2024-12-09 18:20] LABS: Amphetamine Not Detected (NotDetected); Barbiturates Screen Not Detected (NotDetected); Benzodiazepine Screen Not Detected (NotDetected); Cocaine Metabolite Screen Detected (NotDetected); Methadone Not Detected (NotDetected); Methamphetamine Not Detected (NotDetected); Opiate Screen Detected (NotDetected); Oxycodone Screen Not Detected (NotDetected); Phencyclidine (PCP) Not Detected (NotDetected); THC/Cannabinoid Screen Not Detected (NotDetected); Tricyclic Screen Not Detected (NotDetected)
[2024-12-09] MEDS ORDERED: Melatonin 3 MG TAB PO PRN (23:23)
[2024-12-10 04:07] LABS: #Basophils 0.11 10x3/uL (0.0-0.2); %Basophils 1.2 % (0.0-1.0); %Eosinophils 12.3 % (0.0-10.0); %Lymphocytes 26.5 % (21.0-51.0); %Monocytes 10.9 % (0.0-10.0); %Neutrophils 48.9 % (42.0-75.0); Hematocrit 43.4 % (42.0-52.0); Hemoglobin 14.2 g/dL (14.0-18.0); Mean Corpuscular HGB CONC 32.7 g/dL (32.0-36.0); Mean Corpuscular Hemoglobin 27.3 pg (27.0-31.0); Mean Corpuscular Volume 83.3 fL (78.0-98.0); Mean Platelet Volume 10.4 fL (7.4-10.4); Platelet Count 200 10x3/uL (130-400); RBC Distribution Width 15.3 % (11.5-14.5); Red Blood Cell (RBC) Count 5.21 mill/uL (4.70-6.10)
[2024-12-10 04:35] LABS: Hemoglobin A1c 7.1 % (4.0-6.0)
[2024-12-10 04:40] LABS: Anion Gap 14 mmol/L (10-20); BUN (Urea Nitrogen) 24 mg/dL (8.4-25.7); Calc. Creatinine Clearance 58 mL/min (70-130); Calcium 8.9 mg/dL (7.8-10.44); Carbon Dioxide 26 mmol/L (23-31); Chloride 105 mmol/L (98-107); Estimated GFR 59; Glucose 135 mg/dL (80-115); Sodium 141 mmol/L (136-145)
[2024-12-10] MEDS ORDERED: Lisinopril 10 MG TAB PO SCH (09:00)
[2024-12-10] MEDS: FLU (Fluad Triv) TS24-25 (65UP)/MF59C/PF 45 MCG/0.5 ML Syringe IM ONE (09:07)
[2024-12-10] MEDS: Isosorbide Mononitrate 30 MG ER.TAB PO SCH (09:07)
[2024-12-10] MEDS: Lisinopril 20 MG TAB PO SCH (09:07)
[2024-12-10 11:09] VITALS: BMI 28.3
[2024-12-10] MEDS: Insulin Lispro 100 UNIT/ML 10 ML VIAL SC PRN (13:06)
[2024-12-10] MEDS: NIFEdipine XL 60 MG ER.TAB PO SCH (15:23)
[2024-12-10] MEDS: Hydrochlorothiazide 25 MG TAB PO SCH (15:23)
[2024-12-10] MEDS: traMADol HCl 50 MG TAB PO PRN (15:24)
[2024-12-11 04:43] LABS: Anion Gap 13 mmol/L (10-20); BUN (Urea Nitrogen) 23 mg/dL (8.4-25.7); Calc. Creatinine Clearance 53 mL/min (70-130); Calcium 9.1 mg/dL (7.8-10.44); Carbon Dioxide 26 mmol/L (23-31); Chloride 104 mmol/L (98-107); Estimated GFR 53; Glucose 123 mg/dL (80-115); Potassium 3.9 mmol/L (3.5-5.1); Sodium 139 mmol/L (136-145)
[2024-12-11 04:46] LABS: #Basophils 0.08 10x3/uL (0.0-0.2); %Basophils 0.9 % (0.0-1.0); %Eosinophils 12.9 % (0.0-10.0); %Lymphocytes 27.4 % (21.0-51.0); %Monocytes 10.7 % (0.0-10.0); %Neutrophils 47.9 % (42.0-75.0); Hematocrit 44.2 % (42.0-52.0); Hemoglobin 14.4 g/dL (14.0-18.0); Mean Corpuscular HGB CONC 32.6 g/dL (32.0-36.0); Mean Corpuscular Hemoglobin 27.5 pg (27.0-31.0); Mean Corpuscular Volume 84.5 fL (78.0-98.0); Mean Platelet Volume 10.9 fL (7.4-10.4); Platelet Count 220 10x3/uL (130-400); RBC Distribution Width 15.4 % (11.5-14.5); Red Blood Cell (RBC) Count 5.23 mill/uL (4.70-6.10)
[2024-12-11] MEDS: NIFEdipine XL 60 MG ER.TAB PO SCH (09:27)
[2024-12-11] MEDS: Clopidogrel Bisulfate 75 MG TAB PO SCH (09:28)
[2024-12-11] MEDS: Hydrochlorothiazide 25 MG TAB PO SCH (09:28)
[2024-12-11] MEDS: Cyclobenzaprine 10 MG TAB PO SCH (10:39)
[2024-12-11] MEDS: Lidocaine 4% Patch TD SCH (10:39)
[2024-12-11] MEDS: LIDOCAINE Patch Removal TOP SCH (21:05)
[2024-12-12 05:43] LABS: #Basophils 0.09 10x3/uL (0.0-0.2); %Eosinophils 11.7 % (0.0-10.0); %Lymphocytes 25.4 % (21.0-51.0); %Neutrophils 51.6 % (42.0-75.0); Hematocrit 42.2 % (42.0-52.0); Hemoglobin 13.4 g/dL (14.0-18.0); Mean Corpuscular HGB CONC 31.8 g/dL (32.0-36.0); Mean Corpuscular Hemoglobin 27.2 pg (27.0-31.0); Mean Corpuscular Volume 85.8 fL (78.0-98.0); Platelet Count 217 10x3/uL (130-400); RBC Distribution Width 15.5 % (11.5-14.5); Red Blood Cell (RBC) Count 4.92 mill/uL (4.70-6.10)
[2024-12-12 05:54] LABS: Anion Gap 13 mmol/L (10-20); BUN (Urea Nitrogen) 28 mg/dL (8.4-25.7); Calc. Creatinine Clearance 57 mL/min (70-130); Calcium 9.1 mg/dL (7.8-10.44); Carbon Dioxide 24 mmol/L (23-31); Chloride 105 mmol/L (98-107); Estimated GFR 58; Glucose 124 mg/dL (80-115); Potassium 4.1 mmol/L (3.5-5.1); Sodium 138 mmol/L (136-145)
[2024-12-12 12:24] VITALS: BP 171/77; TEMP 97.7
== END 2024-12-12 14:30 | disposition home or self-care (01) | DRG 65 ==
LOC: ERS 10:20 → ERHOLD 14:28 → 2SE 19:45 → OBSVTOIN 12-09 13:53
PROVIDERS: ADMIT Family Medicine; ATTEND Family Medicine
DX: I63.9 Cerebral infarction, unspecified (principal); C64.1 Malignant neoplasm of right kidney, except renal pelvis; I13.0 Hypertensive heart and chronic kidney disease with heart failure and stage 1 through stage 4 chronic kidney disease, or unspecified chronic kidney disease; I50.32 Chronic diastolic (congestive) heart failure; Z59.00 Homelessness unspecified; C77.1 Secondary and unspecified malignant neoplasm of intrathoracic lymph nodes; R29.700 NIHSS score 0; F14.10 Cocaine abuse, uncomplicated; E11.22 Type 2 diabetes mellitus with diabetic chronic kidney disease; N18.30 Chronic kidney disease, stage 3 unspecified; E78.5 Hyperlipidemia, unspecified; F41.9 Anxiety disorder, unspecified; I45.10 Unspecified right bundle-branch block; I25.2 Old myocardial infarction; Z91.199 Patient's noncompliance with other medical treatment and regimen due to unspecified reason; Z87.891 Personal history of nicotine dependence
CPT/HCPCS: 36415; 36416; 70450; 70551; 71045; 80048; 80053; 80061; 80306; 81001; 82140; 83036; 83690; 83735; 84484; 85025; 85610; 85730; 93005; 93306; 93880; 96372; G0378; J0360; J1650; J1815; J2270

== ENCOUNTER 2024-12-24 10:51 | Observation (INO) | payer OTHER ==
[2024-12-24 11:39] LABS: #Basophils 0.13 10x3/uL (0.0-0.2); %Basophils 1.6 % (0.0-1.0); %Eosinophils 14.1 % (0.0-10.0); %Lymphocytes 24.8 % (21.0-51.0); %Neutrophils 51.3 % (42.0-75.0); Hematocrit 42.2 % (42.0-52.0); Mean Corpuscular HGB CONC 33.2 g/dL (32.0-36.0); Mean Corpuscular Hemoglobin 27.6 pg (27.0-31.0); Mean Corpuscular Volume 83.1 fL (78.0-98.0); Mean Platelet Volume 10.3 fL (7.4-10.4); Platelet Count 235 10x3/uL (130-400); RBC Distribution Width 15.3 % (11.5-14.5); Red Blood Cell (RBC) Count 5.08 mill/uL (4.70-6.10)
[2024-12-24 11:54] LABS: ALT (SGPT) 14 U/L (Less than 45); AST (SGOT) 21 U/L (11-34); Albumin 3.9 g/dL (3.1-4.5); Alkaline Phosphatase 99 U/L (40-110); Anion Gap 12 mmol/L (10-20); BUN (Urea Nitrogen) 27 mg/dL (8.4-25.7); Bilirubin, Total 0.3 mg/dL (0.3-1.2); Calc. Creatinine Clearance 0 mL/min (70-130); Calcium 9.6 mg/dL (7.8-10.44); Carbon Dioxide 25 mmol/L (23-31); Chloride 106 mmol/L (98-107); Estimated GFR 69; Globulin 3.5 g/dL (2.4-3.5); Glucose 179 mg/dL (80-115); Potassium 4.1 mmol/L (3.5-5.1); Protein, Total 7.4 g/dL (5.8-8.1); Sodium 139 mmol/L (136-145)
[2024-12-24 11:57] LABS: Troponin I 0.031 ng/mL (< 0.028)
[2024-12-24] MEDS ORDERED: Aspirin 325 MG TAB ONE (12:22)
[2024-12-24] MEDS ORDERED: Nitroglycerin 2% Ointment 1 INCH/1 GM Packet ONE (12:22)
[2024-12-24] MEDS ORDERED: Ondansetron PF 4 MG/2 ML Vial IVP PRN (14:43)
[2024-12-24] MEDS ORDERED: Dextrose 5% in Water 1,000 ML IV PRN (14:45)
[2024-12-24] MEDS ORDERED: Dextrose 50% Abboject 50 ML SYRINGE SLOW IVP PRN (14:45)
[2024-12-24] MEDS ORDERED: Glucagon 1 MG/ML KIT IM PRN (14:45)
[2024-12-24] MEDS ORDERED: Insulin Lispro 100 UNIT/ML 10 ML VIAL SC PRN (14:53)
[2024-12-24 15:59] VITALS: BMI 29.2
[2024-12-24 16:52] LABS: Troponin I 0.043 ng/mL (< 0.028)
[2024-12-24] MEDS: Acetaminophen 325 MG TAB PO PRN (18:24)
[2024-12-24] MEDS: Famotidine 20 MG TAB PO SCH (20:19)
[2024-12-24] MEDS: Atorvastatin Calcium 40 MG TAB PO SCH (20:19)
[2024-12-24 20:24] LABS: Troponin I 0.026 ng/mL (< 0.028)
[2024-12-25 05:02] LABS: #Basophils 0.12 10x3/uL (0.0-0.2); %Basophils 1.4 % (0.0-1.0); %Eosinophils 14.1 % (0.0-10.0); %Lymphocytes 26.7 % (21.0-51.0); %Monocytes 9.3 % (0.0-10.0); %Neutrophils 48.3 % (42.0-75.0); Hematocrit 41.8 % (42.0-52.0); Hemoglobin 13.4 g/dL (14.0-18.0); Mean Corpuscular HGB CONC 32.1 g/dL (32.0-36.0); Mean Corpuscular Hemoglobin 27.1 pg (27.0-31.0); Mean Corpuscular Volume 84.4 fL (78.0-98.0); Mean Platelet Volume 10.4 fL (7.4-10.4); Platelet Count 224 10x3/uL (130-400); RBC Distribution Width 15.2 % (11.5-14.5); Red Blood Cell (RBC) Count 4.95 mill/uL (4.70-6.10)
[2024-12-25 05:06] LABS: Anion Gap 12 mmol/L (10-20); BUN (Urea Nitrogen) 29 mg/dL (8.4-25.7); Calc. Creatinine Clearance 70 mL/min (70-130); Calcium 8.9 mg/dL (7.8-10.44); Carbon Dioxide 26 mmol/L (23-31); Chloride 104 mmol/L (98-107); Estimated GFR 71; Glucose 107 mg/dL (80-115); Potassium 3.9 mmol/L (3.5-5.1); Sodium 138 mmol/L (136-145)
[2024-12-25] MEDS: Isosorbide Mononitrate 30 MG ER.TAB PO SCH (09:02)
[2024-12-25] MEDS: NIFEdipine XL 60 MG ER.TAB PO SCH (09:02)
[2024-12-25] MEDS: Lisinopril 10 MG TAB PO SCH (09:02)
[2024-12-25] MEDS: Enoxaparin 40 MG (0.4 mL) SYRINGE SC SCH (09:02)
[2024-12-25] MEDS: Aspirin Chewable 81 MG TAB PO SCH (09:02)
[2024-12-25] MEDS: Hydrochlorothiazide 25 MG TAB PO SCH (09:02)
[2024-12-25] MEDS: Clopidogrel Bisulfate 75 MG TAB PO SCH (09:02)
[2024-12-25 13:57] VITALS: BP 165/74; TEMP 97.9
== END 2024-12-25 13:50 | disposition home or self-care (01) ==
LOC: ERS 10:51 → OBS 13:08
PROVIDERS: ADMIT Internal Medicine; ATTEND Internal Medicine
DX: R07.89 Other chest pain (principal); E11.9 Type 2 diabetes mellitus without complications; I13.0 Hypertensive heart and chronic kidney disease with heart failure and stage 1 through stage 4 chronic kidney disease, or unspecified chronic kidney disease; I50.32 Chronic diastolic (congestive) heart failure; N18.9 Chronic kidney disease, unspecified; I25.2 Old myocardial infarction; E78.5 Hyperlipidemia, unspecified; F41.9 Anxiety disorder, unspecified; Z85.528 Personal history of other malignant neoplasm of kidney; Z79.82 Long term (current) use of aspirin; Z79.84 Long term (current) use of oral hypoglycemic drugs; Z79.02 Long term (current) use of antithrombotics/antiplatelets; Z79.899 Other long term (current) drug therapy
CPT/HCPCS: 71045; 80048; 80053; 82962 ×2; 83880; 84484 ×2; 85025 ×2; 93005; 96372; 99285; G0378 ×3; J1650; 36415; 36416

== ENCOUNTER 2025-06-08 10:02 | Outpatient (CLI) | payer OTHER | END 2025-06-08 10:03 | disposition home or self-care (01) | LOC: ULT 10:02 | PROVIDERS: ATTEND Nurse Practitioner Family | DX: E11.9 Type 2 diabetes mellitus without complications (principal); K59.09 Other constipation; K42.9 Umbilical hernia without obstruction or gangrene; K76.0 Fatty (change of) liver, not elsewhere classified; N28.1 Cyst of kidney, acquired; N28.89 Other specified disorders of kidney and ureter | CPT/HCPCS: 76700 ==

== ENCOUNTER 2025-06-27 10:41 | Inpatient (IN) | payer OTHER ==
[2025-06-27] MEDS ORDERED: Iopamidol-370 76% 500 ML MDV (1 ML CHARGE) ONE (10:42)
[2025-06-27 11:52] LABS: #Basophils 0.11 10x3/uL (0.0-0.2); #Eosinophils 1.03 10x3/uL (0.0-0.7); #Monocytes 0.76 10x3/uL (0.11-0.59); #Neutrophils 4.67 10x3/uL (1.40-6.50); %Basophils 1.3 % (0.0-1.0); %Eosinophils 12.0 % (0.0-10.0); %Lymphocytes 23.3 % (21.0-51.0); %Monocytes 8.8 % (0.0-10.0); %Neutrophils 54.3 % (42.0-75.0); Hematocrit 42.4 % (42.0-52.0); Hemoglobin 14.1 g/dL (14.0-18.0); Mean Corpuscular Hemoglobin 28.1 pg (27.0-31.0); Mean Corpuscular Volume 84.6 fL (78.0-98.0); Platelet Count 227 10x3/uL (130-400); Red Blood Cell (RBC) Count 5.01 mill/uL (4.70-6.10); White Blood Cell (WBC) Count 8.60 10x3/uL (4.8-10.8)
[2025-06-27 12:07] LABS: INR-International Normal Ratio 1.0; PTT 32.5 sec (22.9-36.1); Prothrombin Time 13.1 sec (12.0-14.7)
[2025-06-27 12:18] LABS: ALT (SGPT) 13 U/L (Less than 45); AST (SGOT) 27 U/L (11-34); Albumin 4.0 g/dL (3.1-4.5); Alkaline Phosphatase 86 U/L (40-110); Anion Gap 15 mmol/L (10-20); BUN (Urea Nitrogen) 25 mg/dL (8.4-25.7); Bilirubin, Total 0.3 mg/dL (0.3-1.2); Calc. Creatinine Clearance 0 mL/min (70-130); Calcium 9.4 mg/dL (7.8-10.44); Carbon Dioxide 29 mmol/L (23-31); Chloride 99 mmol/L (98-107); Globulin 2.9 g/dL (2.4-3.5); Glucose 279 mg/dL (80-115); Potassium 3.3 mmol/L (3.5-5.1); Sodium 140 mmol/L (136-145)
[2025-06-27 12:32] LABS: Bacteria/HPF None Seen HPF (None Seen); CAUTI Indications for Culture Dysuria,urgency,freq; Glucose, Urine (Dipstick) 500 mg/dL (Negative); Leukocyte Negative Leu/uL (Negative); Protein, Urine (Dipstick) Negative (Neg-Trace); RBC/HPF 0-3 HPF (0-3); Specific Gravity, Urine 1.032 (1.002-1.036); WBC/HPF 0-3 HPF (0-3)
[2025-06-27 12:42] LABS: Urine Culture Reflex No No
[2025-06-27] MEDS ORDERED: Senokot S 8.6-50 MG TAB PO PRN (12:49)
[2025-06-27] MEDS ORDERED: Bisacodyl 10 MG SUPP PR PRN (12:49)
[2025-06-27] MEDS ORDERED: Aspirin 325 MG TAB ONE (12:55)
[2025-06-27] MEDS ORDERED: Dextrose 50% Abboject 50 ML SYRINGE SLOW IVP PRN (13:08)
[2025-06-27] MEDS ORDERED: Glucagon 1 MG/ML KIT IM PRN (13:08)
[2025-06-27] MEDS ORDERED: Electrolyte Replacement Protocol 1 EACH FS SCH (13:15)
[2025-06-27 13:34] LABS: Magnesium 1.9 mg/dL (1.6-2.6)
[2025-06-27 15:14] LABS: Cocaine Metabolite Screen Negative (Negative); THC/Cannabinoid Screen Negative (Negative); Tricyclic Screen Negative (Negative)
[2025-06-27 16:00] VITALS: BMI 30.7
[2025-06-27] MEDS: NIFEdipine XL 30 MG ER.TAB PO SCH (16:28)
[2025-06-27] MEDS: Ondansetron PF 4 MG/2 ML Vial IVP PRN (16:31)
[2025-06-27] MEDS: Lidocaine Viscous Sol 2% 15 ml UD Cup ONE (16:46)
[2025-06-27] MEDS: Lidocaine 2% Viscous Solution 10 ML, Aluminum & Magnesium Hydroxide 30 ML SSW SCH (16:50)
[2025-06-27] MEDS: Isosorbide Mononitrate 30 MG ER.TAB.S PO SCH (17:09)
[2025-06-27] MEDS: Lisinopril 20 MG TAB PO SCH (17:11)
[2025-06-27] MEDS: PNEUMOC 20-VAL CONJ-DIP CRM/PF 0.5 ML SYRINGE IM ONE (17:12)
[2025-06-27] MEDS: Magnesium 2 GM/50 ML(in water) 2 GM in Premix 1 BAG IVPB SCH (21:16)
[2025-06-28 04:07] LABS: #Basophils 0.09 10x3/uL (0.0-0.2); #Eosinophils 1.14 10x3/uL (0.0-0.7); #Monocytes 0.99 10x3/uL (0.11-0.59); #Neutrophils 4.91 10x3/uL (1.40-6.50); %Basophils 0.9 % (0.0-1.0); %Eosinophils 11.6 % (0.0-10.0); %Lymphocytes 27.1 % (21.0-51.0); %Monocytes 10.1 % (0.0-10.0); %Neutrophils 50.0 % (42.0-75.0); Hematocrit 41.9 % (42.0-52.0); Hemoglobin 13.5 g/dL (14.0-18.0); Mean Corpuscular Hemoglobin 28.0 pg (27.0-31.0); Mean Corpuscular Volume 86.9 fL (78.0-98.0); Platelet Count 216 10x3/uL (130-400); Red Blood Cell (RBC) Count 4.82 mill/uL (4.70-6.10); White Blood Cell (WBC) Count 9.82 10x3/uL (4.8-10.8)
[2025-06-28 04:22] LABS: ALT (SGPT) 12 U/L (Less than 45); AST (SGOT) 11 U/L (11-34); Albumin 3.7 g/dL (3.1-4.5); Alkaline Phosphatase 70 U/L (40-110); Bilirubin, Direct 0.1 mg/dL (0.1-0.3); Bilirubin, Total 0.4 mg/dL (0.3-1.2)
[2025-06-28 04:25] LABS: Anion Gap 16 mmol/L (10-20); BUN (Urea Nitrogen) 25 mg/dL (8.4-25.7); Calc. Creatinine Clearance 61 mL/min (70-130); Calcium 8.9 mg/dL (7.8-10.44); Carbon Dioxide 25 mmol/L (23-31); Cardiac Risk 6.3 (Less than 4.5); Chloride 103 mmol/L (98-107); Cholesterol 244 mg/dl (< 200 Desired); Glucose 139 mg/dL (80-115); HDL Cholesterol 39 mg/dL (>60 Neg Risk); LDL Cholesterol, Calculated 157 mg/dL; Magnesium 2.6 mg/dL (1.6-2.6); Potassium 3.8 mmol/L (3.5-5.1); Sodium 140 mmol/L (136-145); Triglycerides 240 mg/dL (Less than 150)
[2025-06-28] MEDS: Enoxaparin 40 MG (0.4 mL) SYRINGE SC SCH (08:40)
[2025-06-28] MEDS: Lisinopril 20 MG TAB PO SCH (08:41)
[2025-06-28] MEDS: glipiZIDE 5 MG TAB PO SCH (08:42)
[2025-06-28] MEDS: Isosorbide Mononitrate 30 MG ER.TAB.S PO SCH (08:42)
[2025-06-28] MEDS: Aspirin 81 mg Enteric Coated Tablet PO SCH (08:42)
[2025-06-28] MEDS: NIFEdipine XL 90 MG ER.TAB PO SCH (08:43)
[2025-06-28] MEDS ORDERED: metFORMIN 500 MG TAB PO SCH (09:00)
[2025-06-28] MEDS ORDERED: Enoxaparin 40 MG (0.4 mL) SYRINGE SC SCH (09:00)
[2025-06-28] MEDS: Calcium Carbonate 500 MG ChewTAB PO PRN (13:52)
[2025-06-28] MEDS: Acetaminophen 325 MG TAB PO PRN (18:09)
[2025-06-28] MEDS: Mag-Al 1200 mg/1200 mg/30 ML UDCUP PO SCH (23:11)
[2025-06-29 04:21] LABS: #Basophils 0.09 10x3/uL (0.0-0.2); #Eosinophils 1.16 10x3/uL (0.0-0.7); #Monocytes 0.91 10x3/uL (0.11-0.59); #Neutrophils 4.94 10x3/uL (1.40-6.50); %Basophils 0.9 % (0.0-1.0); %Eosinophils 12.0 % (0.0-10.0); %Lymphocytes 26.4 % (21.0-51.0); %Monocytes 9.4 % (0.0-10.0); %Neutrophils 51.0 % (42.0-75.0); Hematocrit 41.6 % (42.0-52.0); Hemoglobin 13.3 g/dL (14.0-18.0); Mean Corpuscular Hemoglobin 27.9 pg (27.0-31.0); Mean Corpuscular Volume 87.2 fL (78.0-98.0); Platelet Count 240 10x3/uL (130-400); Red Blood Cell (RBC) Count 4.77 mill/uL (4.70-6.10); White Blood Cell (WBC) Count 9.69 10x3/uL (4.8-10.8)
[2025-06-29 06:07] LABS: Anion Gap 16 mmol/L (10-20); BUN (Urea Nitrogen) 23 mg/dL (8.4-25.7); Calc. Creatinine Clearance 66 mL/min (70-130); Calcium 9.0 mg/dL (7.8-10.44); Carbon Dioxide 24 mmol/L (23-31); Chloride 103 mmol/L (98-107); Glucose 156 mg/dL (80-115); Magnesium 2.2 mg/dL (1.6-2.6); Potassium 3.5 mmol/L (3.5-5.1); Sodium 139 mmol/L (136-145)
[2025-06-29] MEDS: Pantoprazole 40 MG DR.TAB PO SCH (11:56)
[2025-06-30 04:54] LABS: #Basophils 0.08 10x3/uL (0.0-0.2); #Eosinophils 0.89 10x3/uL (0.0-0.7); #Monocytes 1.00 10x3/uL (0.11-0.59); #Neutrophils 4.62 10x3/uL (1.40-6.50); %Basophils 0.9 % (0.0-1.0); %Eosinophils 9.8 % (0.0-10.0); %Lymphocytes 27.3 % (21.0-51.0); %Monocytes 11.0 % (0.0-10.0); %Neutrophils 50.8 % (42.0-75.0); Hematocrit 41.7 % (42.0-52.0); Hemoglobin 13.3 g/dL (14.0-18.0); Mean Corpuscular Hemoglobin 27.9 pg (27.0-31.0); Mean Corpuscular Volume 87.6 fL (78.0-98.0); Platelet Count 222 10x3/uL (130-400); Red Blood Cell (RBC) Count 4.76 mill/uL (4.70-6.10); White Blood Cell (WBC) Count 9.09 10x3/uL (4.8-10.8)
[2025-06-30 05:16] LABS: Anion Gap 12 mmol/L (10-20); BUN (Urea Nitrogen) 19 mg/dL (8.4-25.7); Calc. Creatinine Clearance 66 mL/min (70-130); Calcium 9.1 mg/dL (7.8-10.44); Carbon Dioxide 27 mmol/L (23-31); Chloride 104 mmol/L (98-107); Glucose 148 mg/dL (80-115); Magnesium 2.0 mg/dL (1.6-2.6); Potassium 3.5 mmol/L (3.5-5.1); Sodium 139 mmol/L (136-145)
[2025-06-30] MEDS: Magnesium 2 GM/50 ML(in water) 2 GM in Premix 1 BAG IVPB SCH (08:53)
[2025-06-30] MEDS: Pantoprazole 40 MG DR.TAB PO SCH (08:55)
[2025-06-30 11:34] VITALS: BP 187/75; TEMP 97.7
== END 2025-06-30 13:01 | disposition home or self-care (01) | DRG 69 ==
LOC: ERS 10:41 → ERHOLD 12:53 → 2SE 14:59 → OBSVTOIN 06-28 15:06
PROVIDERS: ADMIT Family Medicine; ATTEND Internal Medicine
PROC: 4A00X4Z Measurement of Central Nervous Electrical Activity, External Approach (ICD-10-PCS; principal; 2025-06-28)
DX: G45.9 Transient cerebral ischemic attack, unspecified (principal); C64.1 Malignant neoplasm of right kidney, except renal pelvis; I50.32 Chronic diastolic (congestive) heart failure; E78.5 Hyperlipidemia, unspecified; I15.0 Renovascular hypertension; E87.6 Hypokalemia; I11.0 Hypertensive heart disease with heart failure; I25.2 Old myocardial infarction; R07.89 Other chest pain; K21.9 Gastro-esophageal reflux disease without esophagitis; Z79.84 Long term (current) use of oral hypoglycemic drugs; Z79.82 Long term (current) use of aspirin; Z79.899 Other long term (current) drug therapy
CPT/HCPCS: 0042T; 36415; 36416; 70450; 70496; 70498; 70551; 71045; 74177; 80048; 80053; 80061; 80076; 80306; 81001; 83036; 83735; 84443; 84484; 85025; 85610; 85730; 90471; 90677; 93005; 94760; 95700; 95711; 95957; 96372; 96374; 96375; G0009; G0378; J1650; J1815; J2405; J3475; Q9967

== ENCOUNTER 2025-07-19 12:56 | Outpatient (CLI) | payer OTHER ==
[2025-07-19] MEDS ORDERED: Iopamidol 370 76% 100 ML VIAL ONE (14:24)
== END 2025-07-19 12:57 | disposition home or self-care (01) ==
LOC: CT 12:56
PROVIDERS: ATTEND Internal Medicine Hematology & Oncology
DX: C64.1 Malignant neoplasm of right kidney, except renal pelvis (principal)
CPT/HCPCS: 71260; Q9967